=== PATIENT | female | born 1985 | race Caucasian/White ===

== ENCOUNTER → 2023-08-23 | Emergency (ER) | payer OTHER ==
[~2023-08-23] MED LIST: ALBUMIN HUMAN 25% 200 ML IV ONE; FENTANYL CITR 100 MCG/2 ML ONE; NA CHLORIDE 0.9% 1,000 ML ONE; NA CHLORIDE 0.9% 500 ML ONE; POTASSIUM 25 MEQ EFFERV TAB ONE; TRANEXAMIC ACID 1,000 MG/10 ML VIAL IV ONE
[2023-08-23 23:44] LABS: Absolute Basophils 0.1 K/uL (0-0.5); Absolute Eosinophils 0.2 K/uL (0-0.5); Absolute Lymphocytes (CBC) 2.5 K/uL (0.7-4.9); Absolute Monocytes 0.4 K/uL (0.1-1.3); Absolute Neutrophil 4.8 K/uL (1.8-8.0); Basophils % 1.1 % (0-1.3); Hematocrit 30.5 % (36.0-45.0); Hemoglobin 10.8 g/dL (12.0-15.0); Lymphocytes % 30.9 % (15.3-44.8); MCH 31.1 pg (27.0-35.0); MCHC 35.2 g/dL (32.0-36.0); MCV 88.4 fL (80-100); Monocytes % 5.4 % (3.3-12.3); Neutrophils % 60.6 % (41.7-73.7); Platelets 207 thou/uL (152-406); RBC Red Blood Cell Count 3.45 M/uL (3.86-4.86); Red Cell Distribution Width 12.7 % (12.1-15.2)
[2023-08-23 23:57] LABS: Anion Gap 10.3 mEq/L (5.0-15.0); Potassium 3.3 mEq/L (3.5-5.1)
--- NOTE | 2023-08-24 01:20 | ER ---
Nurse's Notes [facility] Name: Chapis Delgado Age: 37 yrs Sex: Female : 1985 Arrival Date: 08/23/2023 Time: 22:07 Bed 3 Private MD: Diagnosis: Incomplete spontaneous without complication;Anemia, unspecified Presentation: 08/22 22:46 Chief complaint: Patient states: vaginal bleeding since 2100 today; had a medicated km8 last week with no success, then got a second dose of the medication today at 1330; pt reports going through 6 pads in the last hour and passing grapefruit size clots. Coronavirus screen: Client denies travel out of the [place] in the last 14 days. Ebola Screen: No symptoms or risks identified at this time. Initial Sepsis Screen: Does the patient meet any 2 criteria? No. Patient's initial sepsis screen is negative. Does the patient have a suspected source of infection? No. Patient's initial sepsis screen is negative. Risk Assessment: Do you want to hurt yourself or someone else? Patient reports no desire to harm self or others. Onset of symptoms was August 23, 2023 at 21:00. 22:46 Method Of Arrival: Ambulatory km8 22:46 Acuity: ARIANNA 3 km8 Triage Assessment: 22:49 General: Appears in no apparent distress. uncomfortable, Behavior is calm, cooperative, km8 appropriate for age. Pain: Complains of pain in suprapubic area Pain radiates to low back area Pain currently is 10 out of 10 on a pain scale. EENT: No signs and/or symptoms were reported regarding the EENT system. Neuro: Level of Consciousness is awake, alert, obeys commands, Oriented to person, place, time, situation, Reports dizziness. Cardiovascular: Denies chest pain, shortness of breath, Patient's skin is warm and dry. Respiratory: Airway is patent Respiratory effort is even, unlabored, Respiratory pattern is regular, symmetrical. GI: No signs and/or symptoms were reported involving the gastrointestinal system. : Reports vaginal bleeding that is with clots, heavy flow since 2099. Derm: No signs and/or symptoms reported regarding the dermatologic system. Skin is intact, is healthy with good turgor, Skin is dry, Skin is pink, warm \T\ dry. normal, Skin temperature is warm. Musculoskeletal: No signs and/or symptoms reported regarding the musculoskeletal system. Range of motion: intact in all extremities. 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 Flu vaccine is not up to date. - Social history:: Smoking status: Patient denies any tobacco usage or history of. Patient/guardian denies using alcohol, street drugs. Screenin:49 [facility] ED Fall Risk Assessment (Adult) History of falling in the last 3 months, me1 including since admission No falls in past 3 months (0 pts) Confusion or Disorientation No (0 pts) Intoxicated or Sedated No (0 pts) Impaired Gait No (0 pts) Mobility Assist Device Used No (0 pt) Altered Elimination No (0 pt) Score/Fall Risk Level 0 - 2 = Low Risk Maintained a safe environment, Provided non-skid footwear, Hourly rounding (assess needs \T\ fall precautionary measures) done. Abuse screen: Denies threats or abuse. Nutritional screening: No deficits noted. Tuberculosis screening: No symptoms or risk factors identified. Assessment: 23:49 General: Appears uncomfortable, well groomed, well developed, well nourished, Behavior me1 is calm, cooperative, appropriate for age, Reports vaginal bleeding since 2100 today; had a medicated last week with no success, then got a second dose of the medication today at 1330; pt reports going through 6 pads in the last hour and passing grapefruit size clots. Pain: Complains of pain in abdomen and suprapubic area Pain radiates to back and low back area Pain currently is 9 out of 10 on a pain scale. Quality of pain is described as crampy, Pain began 4 hours ago. Is continuous. Neuro: Level of Consciousness is awake, alert, obeys commands, Oriented to person, place, time, situation, Appropriate for age. Cardiovascular: Capillary refill < 3 seconds Patient's skin is warm and dry. Respiratory: Airway is patent Trachea midline Respiratory effort is even, unlabored, Respiratory pattern is regular, symmetrical. : Reports vaginal bleeding that is with clots, heavy flow since 9pm. Derm: Skin is pink, warm \T\ dry. Musculoskeletal: 08/23 01:18 Reassessment: pt stated she feels worse; pt noted to be pale and SBP in the 80's; pt BP km8 recheck showed SBP 50's, pt placed in Trendelenburg, SUHAS De La Cruz and Dr. Espinal notified; pt moved to trauma room 3 with this nurse. General: Behavior is drowsy, Reports fatigue for. Neuro: Level of Consciousness is obeys commands, lethargic, Reports dizziness, weakness. Cardiovascular:. Cardiovascular: Patient's skin is warm and dry. Respiratory: Airway is patent Respiratory effort is even, unlabored, Respiratory pattern is regular, symmetrical. Derm: Skin is pale. 02:00 Reassessment: Emergent blood transfusion started per Dr. Espinal; pt verbally km8 consented to blood; see separate transfusion paper. 02:18 Reassessment: report called to SHELDON Prasad at [facility]. km8 02:30 Reassessment: Patient appears in no apparent distress at this time. Patient and/or km8 family updated on plan of care and expected duration. Pain level reassessed. Patient is alert, oriented x 3, equal unlabored respirations, skin warm/dry/pink. Patient states symptoms have improved. Neuro: Level of Consciousness is awake, alert, obeys commands, Oriented to person, place, time, situation. Cardiovascular: Patient's skin is warm and dry. Respiratory: Airway is patent Respiratory effort is even, unlabored, Respiratory pattern is regular, symmetrical. Derm: Skin is pink, warm \T\ dry. normal. Vital Signs: 08/22 22:46 BP 121 / 56; Pulse 63; Resp 16; Temp 98.2(O); Pulse Ox 98% on R/A; Weight 63.96 kg (R); km8 Height 5 ft. 7 in. (R); Pain 10/10; 23:45 BP 104 / 61; Pulse 76; Resp 16; Pulse Ox 100% on R/A; me1 08/23 00:00 BP 95 / 45; Pulse 65; Resp 16; Pulse Ox 99% on R/A; km8 00:07 BP 100 / 54; Pulse 65; Resp 16; Pulse Ox 97% on R/A; km8 00:15 BP 86 / 45; Pulse 62; Resp 16; Pulse Ox 99% on R/A; km8 00:30 BP 91 / 46; Pulse 59; Resp 16; Pulse Ox 100% on R/A; km8 :36 BP 108 / 52; Pulse 71; Resp 16; Pulse Ox 100% on R/A; km8 00:45 BP 96 / 54; Pulse 64; Resp 16; Pulse Ox 100% on R/A; km8 01:16 BP 87 / 51; Pulse 80; Resp 16; Pulse Ox 100% on R/A; km8 :26 BP 56 / 28; Pulse 58; Resp 16; Pulse Ox 100% ; vc1 01:28 BP 66 / 53; Pulse 35; Resp 16; Pulse Ox 100% ; vc1 01:30 BP 73 / 42; Pulse 40; Resp 15; Pulse Ox 100% ; vc1 01:45 BP 94 / 66; Pulse 69; Resp 16; Pulse Ox 100% on R/A; km8 :56 BP 80 / 58; Pulse 84; Resp 16; Pulse Ox 100% on R/A; km8 :00 BP 95 / 64; Pulse 68; Resp 16; Pulse Ox 100% on R/A; km8 :05 BP 93 / 53; Pulse 57; Resp 16; Pulse Ox 100% on R/A; 8 :08 BP 96 / 52; Pulse 61; Resp 16; Pulse Ox 100% on R/A; km8 :10 BP 96 / 41; Pulse 64; Resp 16; Pulse Ox 100% on R/A; km8 :15 BP 89 / 75; Pulse 69; Resp 16; Pulse Ox 100% on R/A; km8 :20 BP 93 / 49; Pulse 61; Resp 16; Pulse Ox 100% ; km8 :25 BP 92 / 46; Pulse 60; Resp 16; Pulse Ox 100% on R/A; km8 :30 BP 93 / 49; Pulse 62; Resp 16; Pulse Ox 100% on R/A; km8 :35 BP 96 / 57; Pulse 69; Resp 16; Pulse Ox 100% on R/A; km8 08/22 22:46 Body Mass Index 22.08 (63.96 kg, 170.18 cm) km8 08/22 22:46 Pain Scale: Adult 8 ED Course: 08/22 22:10 Patient arrived in ED. mr 22:29 Boni Damon PA is PHCP. cp 22:29 Ministerio Espinal MD is Attending Physician. cp 22:49 Triage completed. km8 22:49 Arm band placed on right wrist. km8 23:21 Belia Bueno, RN is Primary Nurse. me1 23:35 Initial lab(s) drawn, by ok, sent to lab. Inserted saline lock: 22 gauge in right me1 antecubital area, using aseptic technique. 23:36 Type And Screen Sent. me1 23:36 Basic Metabolic Panel Sent. me1 23:36 CBC with Diff Sent. me1 23:49 Patient has correct armband on for positive identification. Bed in low position. Call ok1 light in reach. Side rails up X 1. Provided Education on: POC. Verbalized understanding. . 23:58 US OB Limited In Process Unspecified. EDIA 08/23 01:00 Assist provider with pelvic exam: Set up pelvic tray. Performed by Boni DAI POC km8 sent to pathology, Patient tolerated well. 01:20 One-on-one care X 15 minutes. km8 01:20 Inserted saline lock: 18 gauge in left antecubital area, using aseptic technique. km8 01:35 One-on-one care X 15 minutes. km8 01:35 Assist provider with pelvic exam: Performed by Ministerio Espinal MD Vaginal packing km8 inserted. Patient tolerated well. 01:50 One-on-one care X 15 minutes. km8 02:00 Provided Education on: Blood Transfusion. km8 02:00 Consent for blood and/or blood product transfusion explained by staff. km8 02:05 One-on-one care X 15 minutes. km8 02:20 One-on-one care X 15 minutes. km8 02:35 One-on-one care X 15 minutes. km8 02:48 Patient transferred, IV remains in place. km8 02:50 Primary Nurse role handed off by Belia Bueno, RN km8 02:50 Soo Tyler, SHELDON is Primary Nurse. km8 Administered Medications: 08/22 23:48 Drug: fentaNYL (PF) IVP 25 mcg IVP once Route: IVP; Site: right antecubital; ok1 08/23 00:59 Follow up: Response: No adverse reaction; Pain is decreased [facility] 08/22 23:53 Drug: NS 0.9% IV 1000 ml IV at 1 bolus Per protocol; 1000 mL bolus Route: IV; Rate: 1 me1 bolus; Site: right antecubital; 08/23 01:15 Follow up: IV Status: Completed infusion; IV Intake: 1000ml [facility] 01:23 Drug: Potassium PO Effervescent Tablet 50 mEq PO once; dissolve in 4 ounces of water or km8 juice Route: PO; 02:26 Follow up: Response: No adverse reaction [facility] 01:23 Drug: NS 0.9% IV 1000 ml IV at 125 ml/hr continuous Route: IV; Rate: 125 ml/hr; Site: [facility] right antecubital; 02:44 Follow up: IV Status: Completed infusion; IV Intake: 1000ml [facility] 02:24 Drug: Albumin IVPB 25 grams 100 ml IVPB once; (Note: Albumin 25% concentration) Volume: km8 100 ml; Route: IVPB; Site: left antecubital; 02:44 Follow up: IV Status: Infusion continued upon transfer [facility] 02:24 Drug: Albumin IVPB 25 grams 100 ml IVPB once; (Note: Albumin 25% concentration) Volume: km8 100 ml; Route: IVPB; Site: left antecubital; 02:44 Follow up: IV Status: Infusion continued upon transfer [facility] 02:30 Drug: tranexamic acid 1000 mg IV at bolus once; administer at a rate not to exceed 100 lg3 mg per min Route: IV; Rate: bolus; Site: right antecubital; 02:43 Follow up: IV Status: Completed infusion [facility] Medication: 08/22 23:49 VIS not applicable for this client. me1 Intake: 08/23 01:15 IV: 1000ml; Total: 1000ml. [facility] 02:44 IV: 1000ml; Total: 2000ml. [facility] Outcome: 01:19 ER care complete, transfer ordered by MD. macdonald 02:49 Transferred by ground EMS to [facility], Transfer form [facility] completed. 02:49 Condition: stable 02:49 Instructed on the need for admit, Demonstrated understanding of instructions, 02:51 Patient left the ED. km8 Signatures: Dispatcher [employer] EDKristin Abdul, Reg Reg mr Marisol, Boni, Isabel Herr cp, RN RN lg3 Vinita Preston, RN RN vc1 Belia Bueno, RN RN ok1 Soo Tyler, RN RN km8 Corrections: (The following items were deleted from the chart) 08/22 22:52 22:49 LMP 08/23/2023, unknown, current km8 km8 23:48 22:46 Chief complaint: Patient states: vaginal bleeding since 2100 today; had a me1 medicated last week with no success, then got a second dose of the medication today at 1330; pt reports going through 6 pads in the last hour and passing grapefruit size clots km8 08/23 02:51 02:00 Reassessment: Emergent blood transfusion started per Dr. Espinal; pt verbally km8 consented to blood. km8
--- NOTE | 2023-08-24 01:20 | EDPHYS ---
Physician Documentation [facility] Name: Chapis Delgado Age: 37 yrs Sex: Female : 1985 Arrival Date: 08/23/2023 Time: 22:07 Bed 3 Private MD: ED Physician Ministerio Espinal HPI: 08/22 23:00 This 37 yrs old Female presents to ER via Ambulatory with complaints of Vaginal cp Bleeding. 23:00 The patient presents with vaginal bleeding that is heavy, with clots. Onset: The cp symptoms/episode began/occurred today, at 21:00. Associated signs and symptoms: Pertinent positives: abdominal pain, Pertinent negatives: fever, vomiting. Severity of symptoms: in the emergency department the symptoms are unchanged, despite home interventions. 23:00 Patient reports she was treated for non-viable with vaginal suppository cp Misoprostol today. Reports DR Olivia placed suppository at 1345 appt today with heavy bleeding starting at 2100. 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 Flu vaccine is not up to date. - Social history:: Smoking status: Patient denies any tobacco usage or history of. Patient/guardian denies using alcohol, street drugs. ROS: 23:05 Constitutional: Negative for body aches, chills, fever, poor PO intake, cp 23:05 Respiratory: Negative for cough, shortness of breath, wheezing, cp 23:05 Abdomen/GI: Positive for abdominal pain, 23:05 : Positive for vaginal bleeding, 23:05 Neuro: Negative for altered mental status, headache, syncope, weakness, 23:05 Eyes: Negative for injury, pain, redness, and discharge, cp 23:05 ENT: Negative for drainage from ear(s), ear pain, sore throat, difficulty swallowing, difficulty handling secretions, 23:05 Cardiovascular: Negative for chest pain, edema, palpitations, 23:05 Back: Negative for pain at rest, pain with movement, 23:05 All other systems are negative, Exam: 23:10 Constitutional: The patient appears in no acute distress, alert, awake, non-toxic, well cp developed, well nourished, pale, 23:10 Head/Face: Normocephalic, atraumatic. cp 23:10 Eyes: Periorbital structures: appear normal, Conjunctiva: normal, no exudate, no injection, Sclera: no appreciated abnormality, Lids and lashes: appear normal, bilaterally, 23:10 ENT: External ear(s): are unremarkable, Nose: is normal, Mouth: Lips: moist, Oral mucosa: pink and intact, moist, Posterior pharynx: Airway: no evidence of obstruction, patent, 23:10 Chest/axilla: Inspection: normal, 23:10 Cardiovascular: Rate: normal, Rhythm: regular, 23:10 Respiratory: the patient does not display signs of respiratory distress, Respirations: normal, no use of accessory muscles, no retractions, labored breathing, is not present, Breath sounds: are clear throughout, no decreased breath sounds, no stridor, no wheezing, 23:10 Abdomen/GI: Inspection: abdomen appears normal, Bowel sounds: active, all quadrants, Palpation: soft, in all quadrants, moderate abdominal tenderness, in the right lower quadrant and left lower quadrant, 23:10 Neuro: Orientation: to person, place \T\ time. Mentation: is normal, Motor: moves all fours, strength is normal, Sensation: is normal, 08/23 02:05 : Pelvic Exam: External exam: is normal, Speculum exam: severe bleeding, blood clots cp in vaginal vault, os that is open, tissue in cervix is seen, tissue in vagina is seen, the nurse was present for the exam, Vital Signs: 08/22 22:46 BP 121 / 56; Pulse 63; Resp 16; Temp 98.2(O); Pulse Ox 98% on R/A; Weight 63.96 kg (R); km8 Height 5 ft. 7 in. (R); Pain 10/10; 23:45 BP 104 / 61; Pulse 76; Resp 16; Pulse Ox 100% on R/A; me1 08/23 00:00 BP 95 / 45; Pulse 65; Resp 16; Pulse Ox 99% on R/A; km8 00:07 BP 100 / 54; Pulse 65; Resp 16; Pulse Ox 97% on R/A; km8 00:15 BP 86 / 45; Pulse 62; Resp 16; Pulse Ox 99% on R/A; km8 00:30 BP 91 / 46; Pulse 59; Resp 16; Pulse Ox 100% on R/A; km8 00:36 BP 108 / 52; Pulse 71; Resp 16; Pulse Ox 100% on R/A; km8 00:45 BP 96 / 54; Pulse 64; Resp 16; Pulse Ox 100% on R/A; km8 01:16 BP 87 / 51; Pulse 80; Resp 16; Pulse Ox 100% on R/A; km8 :26 BP 56 / 28; Pulse 58; Resp 16; Pulse Ox 100% ; vc1 01:28 BP 66 / 53; Pulse 35; Resp 16; Pulse Ox 100% ; vc1 01:30 BP 73 / 42; Pulse 40; Resp 15; Pulse Ox 100% ; vc1 01:45 BP 94 / 66; Pulse 69; Resp 16; Pulse Ox 100% on R/A; km8 :56 BP 80 / 58; Pulse 84; Resp 16; Pulse Ox 100% on R/A; km8 02:00 BP 95 / 64; Pulse 68; Resp 16; Pulse Ox 100% on R/A; 8 :05 BP 93 / 53; Pulse 57; Resp 16; Pulse Ox 100% on R/A; 8 :08 BP 96 / 52; Pulse 61; Resp 16; Pulse Ox 100% on R/A; 8 :10 BP 96 / 41; Pulse 64; Resp 16; Pulse Ox 100% on R/A; 8 02:15 BP 89 / 75; Pulse 69; Resp 16; Pulse Ox 100% on R/A; km8 :20 BP 93 / 49; Pulse 61; Resp 16; Pulse Ox 100% ; km8 :25 BP 92 / 46; Pulse 60; Resp 16; Pulse Ox 100% on R/A; km8 02:30 BP 93 / 49; Pulse 62; Resp 16; Pulse Ox 100% on R/A; km8 :35 BP 96 / 57; Pulse 69; Resp 16; Pulse Ox 100% on R/A; km8 08/22 22:46 Body Mass Index 22.08 (63.96 kg, 170.18 cm) [facility] 08/22 22:46 Pain Scale: Adult 8 MDM: 08/22 23:07 Patient medically screened. 08/23 01:15 Data reviewed: vital signs, nurses notes, lab test result(s), radiologic studies, cp ultrasound. Management of patient was discussed with the following: Poultry Inseminator: DR Cheng, SAW CLEANER \T\[facility], will accept patient as transfer after discussion. I considered the following discharge prescriptions or medication management in the emergency department Medications were administered in the Emergency Department. See AUG. 08/22 22:56 Order name: Type And Screen 08/22 22:47 Order name: Urinalysis W/Microscopic; Complete Time: 01:39 08/22 22:47 Order name: Test, Urine 08/22 22:56 Order name: Basic Metabolic Panel; Complete Time: 23:58 08/22 23:58 Interpretation: Normal except: K 3.3; GLUC 127. 08/22 22:56 Order name: CBC with Diff; Complete Time: 00:02 08/23 00:02 Interpretation: Normal except: RBC 3.45; HGB 10.8; HCT 30.5. 08/23 01:45 Order name: ABO/RH no charge [facility] 08/23 01:48 Order name: Packed RBC Leukored [facility] 08/22 23:13 Order name: US OB Limited 08/22 22:56 Order name: IV Saline Lock; Complete Time: 23:36 08/22 22:56 Order name: Labs collected and sent; Complete Time: 23:36 08/22 22:56 Order name: NPO; Complete Time: 23:36 08/22 23:13 Order name: IV; Complete Time: 23:36 cp 08/22 23:14 Order name: Pelvic Exam Setup; Complete Time: 23:54 08/23 01:58 Order name: Transfuse; Complete Time: 02:30 cp Administered Medications: 08/22 23:48 Drug: fentaNYL (PF) IVP 25 mcg IVP once Route: IVP; Site: right antecubital; [facility] 08/23 00:59 Follow up: Response: No adverse reaction; Pain is decreased [facility] 08/22 23:53 Drug: NS 0.9% IV 1000 ml IV at 1 bolus Per protocol; 1000 mL bolus Route: IV; Rate: 1 me1 bolus; Site: right antecubital; 08/23 01:15 Follow up: IV Status: Completed infusion; IV Intake: 1000ml [facility] 01:23 Drug: Potassium PO Effervescent Tablet 50 mEq PO once; dissolve in 4 ounces of water or km8 juice Route: PO; 02:26 Follow up: Response: No adverse reaction [facility] 01:23 Drug: NS 0.9% IV 1000 ml IV at 125 ml/hr continuous Route: IV; Rate: 125 ml/hr; Site: 8 right antecubital; 02:44 Follow up: IV Status: Completed infusion; IV Intake: 1000ml [facility] 02:24 Drug: Albumin IVPB 25 grams 100 ml IVPB once; (Note: Albumin 25% concentration) Volume: km8 100 ml; Route: IVPB; Site: left antecubital; 02:44 Follow up: IV Status: Infusion continued upon transfer [facility] 02:24 Drug: Albumin IVPB 25 grams 100 ml IVPB once; (Note: Albumin 25% concentration) Volume: km8 100 ml; Route: IVPB; Site: left antecubital; 02:44 Follow up: IV Status: Infusion continued upon transfer [facility] 02:30 Drug: tranexamic acid 1000 mg IV at bolus once; administer at a rate not to exceed 100 lg3 mg per min Route: IV; Rate: bolus; Site: right antecubital; 02:43 Follow up: IV Status: Completed infusion [facility] Disposition: 06:59 Co-signature as Attending Physician, Ministerio Espinal MD I agree with the assessment sp4 and plan of care. I reviewed the patient's care provided by Advanced Practice Provider \T\ agree w/ the diagnosis \T\ care plan. I personally saw the pt \T\ performed a substantive portion of the visit, incldng all aspects of the (History/Exam/Medical Decision Making). Disposition Summary: 08/24/23 01:19 Transfer Ordered Notes: Transfer Location: [facility] cp Reason: Higher level of care cp Condition: Stable cp Problem: new cp Symptoms: have improved cp Accepting Physician: DR Cheng(08/24/23 02:51) 8 Diagnosis - Incomplete spontaneous without complication cp - Anemia, unspecified cp Forms: - Medication Reconciliation Form cp - SBAR form cp Signatures: Dispatcher [employer] Boni Osuna PA PA cp Able, Lacie RN RN lg3 Ministerio Espinal MD MD sp4 Belia Bueno RN RN me1 Soo Tyler RN RN km8 Corrections: (The following items were deleted from the chart) 02:51 01:19 DR Prosper macdonald km8
[2023-08-24 01:38] LABS: Specific Gravity > 1.030 (1.005-1.030); Sqamous Epithelial <5 /HPF (None Seen); Urine Bacteria None Seen /HPF (<20); Urine Bilirubin NEGATIVE (Negative); Urine Blood 1+ (Negative); Urine Clarity Clear (Clear); Urine Color Yellow (Yellow); Urine Crystals Unidentified Few /HPF (None Seen); Urine Culture Reflex Order NOT NEEDED; Urine Glucose NEGATIVE (Negative); Urine Ketones TRACE (Negative); Urine Micro Reflex YN NO BILL MICROSCOPIC; Urine Mucus 4+ /HPF (None Seen); Urine Nitrite NEGATIVE (Negative); Urine Protein 1+ (Negative); Urine Urobilinogen Normal (Normal); Urine WBC <5 /HPF (<5); Urine Yeast (Budding) Trace /HPF (None Seen)
[2023-08-24 02:57] VITALS: TEMP 98.2
[2023-08-24 03:29] VITALS: O2SAT 100
[2023-08-24 03:56] VITALS: BP 96/57
--- NOTE | 2023-08-24 11:31 | RAD REPORT ---
EXAM DESCRIPTION: US - OB Limited - 08/23/2023 11:56 pm CLINICAL HISTORY: The patient is 37 years old and is Female; VAGINAL BLEEDING , recent miscarriage i nduction,Bed Name: 13 TECHNIQUE: Real-time limited ultrasound of the maternal uterus with image documentation. COMPARISON: No relevant prior studies available. FINDINGS: FETUS: No identifiable gestational sac. No pole or heart tones identified. UTERUS: Thickened, heterogenous appearance of the endometrium, measuring up to 2.4 cm, with interna l vascularity and trace associated endometrial fluid.. This heterogenous signal continues into the ce rvical canal. The uterus measures 9.5 x 5.2 x 7 cm. ADNEXA: Neither the left nor the right ovary is identified on transabdominal imaging. No abnormal adnexal mass or fluid collection is appreciated. OTHER FINDINGS: No appreciable endometrial gas is identified by ultrasound. IMPRESSION: Thickened heterogenous appearance of the endometrium and cervical canal with internal va scularity, favoring retained products of conception given history. No viable IUP identified. No appre ciable gas to suggest endometritis. Electronically signed by: Nils Kinney MD 08/24/2023 12:32 AM CDT Due to temporary technical issues with the PACS/Fluency reporting system, reports are being signed by the in house radiologist without review as a courtesy to ensure prompt reporting. The interpreting r adiologist is fully responsible for the content of the report.
== END ==
LOC: ER 22:07
PROC: 30233N1 Transfusion of Nonautologous Red Blood Cells into Peripheral Vein, Percutaneous Approach (ICD-10-PCS; principal; 2023-08-23)
DX: O03.4 Incomplete spontaneous abortion without complication (principal); D64.9 Anemia, unspecified; Z28.310 Unvaccinated for COVID-19
CPT/HCPCS: 96365; 96361; 85025; 80048; 36415; 86900; 86850; 86901; 86920 ×2; 76815; 96375; 99285; 36430; J3010; J7030

== ENCOUNTER 2024-03-23 18:41 | Emergency (ER) | payer OTHER ==
--- OUTSIDE RECORDS SUMMARY | 2024-03-23 18:44 | XMS REPORT | Continuity of Care Document ---
Author Name Unknown Address [address] [facility] [place]. [address] [place] [address] [facility] heal[facility] Address [address] [facility]. [address] [place] [address] Care Team Providers Care Procurement Assistant Name Role Phone PCP, PATIENT DOES NOT HAVE A Primary Care Physic mikey Unavailable NITZA BYRNES Attending Clinician Unavailable NITZA BYRNES Attending Clinician Unavailable NAT MAYER Attending Clinician Unavailable Nitza Byrnes MD Attending Clinician [phone] Doctor Unassigned, [place] Attending Clinician U navailable 2, [facility] Attending Clinician Unavailable BLANCHE CHENG Attending Clinician Unavailable Blanche Cheng MD Attending Clinician [phone] RLYEE HAY Attending Clinician RYLEE Kincaid Attending Clinician BLANCHE Casarez Admitting Clinician Unavailable Blanche Cheng MD Admitting Clinician [phone] Payers Payer Name Policy Type Policy Number Effective Date Expirati on Date Source [facility] [id number] 2024 00:00:00 Problems Condition Name Condition Details Condition Category Status Onset Date Resolution Date Last Treatment Date Treating Clinician Comments Source Previous section Previous section Disease Active 2023-06 00:00: 00 [facility] High-risk in first trimester High-risk in first trimester Disease Active 2023-06 00:00: 00 [facility] Nausea and vomiting during prior to 22 weeks gestation Nausea and vomiting during prior to 22 weeks gestation Disease Active 2023-06 00:00: 00 [facility] History of anxiety History of anxiety Disease Active 2023-06 014 00:00: 00 [facility] AMA (advanced maternal age) multigravi da 35+, first trimester AMA (advanced maternal age) multigravi da 35+, first trimester Disease Active 3 00:00: 00 [facility] Anemia due to acute blood loss Anemia due to acute blood loss Disease Resolve d 08-23 00:00: 00 2024-03-10 00:00:00 2024-03-10 15:43:25 [facility] Incomplete miscarriag e Incomplete miscarriag e Disease Resolve d 08-23 00:00: 00 2023-09-06 00:00:00 2023-09-06 09:29:54 [facility] Missed Missed Disease Resolve d 08-13 00:00: 00 2023-09-06 00:00:00 2023-09-06 09:29:53 [facility] Allergies, Adverse Reactions, Alerts Allergy Name Allergy Type Status Severity Reaction(s) Onset Date Inactive Date Treating Clinician Comments Source NO KNOWN ALLERGIE S Drug Class Active [facility] Social History Social Habit Start Date Stop Date Quantity Comments Source ASSERTION 2024-01-24 00:00:00 [facility] Alcoholic beverage intake 2024-03-17 00:00:00 2024-03-17 00:00:00 Lifetime non-drinker (finding) [facility] Tobacco use and exposure 2024-03-10 00:00:00 2024-03-10 00:00:00 Smokeless tobacco non-user [facility] Alcohol intake 2023-09-06 00:00:00 2023-09-06 00:00:00 Lifetime non-drinker (finding) [facility] History of Social function 2023-08-15 00:00:00 2023-08-15 00:00:00 [facility] Sex assigned at 1985 00:00:00 1985 00:00:00 [facility] Smoking Status Start Date Stop Date Source Never smoked tobacco [facility] Medications Ordered Medication Name Filled Medication Name Start Date Stop Date Current Medication? Ordering Clinician Indication Dosage Frequency Signature (SIG) Comments Components Source vit no.124/iron /folic ( VITAMIN ORAL) 2023-06 15:42: 58 03-10 00:00 :00 No Take by mouth. [facility] pyridoxine, VITAMIN B-6, (VITAMIN B-6) 25 mg tablet 2023-06 00:00: 00 Yes [id number] 25mg Take 1 tablet by mouth every 6 (six) hours as needed for Nausea and Vomiting (N/V). [facility] doxylamine (UNISOM, DOXYLAMINE, ) 25 mg tablet 2023-06 00:00: 00 Yes [id number] 25mg Take 1 tablet by mouth at bedtime as needed for Nausea and Vomiting (N/V). [facility] proMETHazin e 25 mg tablet 2023-06 00:00: 00 Yes [id number] 25mg Take 1 tablet by mouth every 4 (four) hours as needed for Nausea and Vomiting (N/V). [facility] rizatriptan 10 mg tablet 09-05 08:43: 24 Yes TAKE 1 TABLET BY ORAL ROUTE NEEDED, FOR ABORTIVE MIGRAINE. [facility] clonazePAM 0.5 mg tablet 09-05 08:43: 13 Yes .5mg Take 1 tablet by mouth in the morning and 1 tablet in the evening. [facility] vit no.124/iron /folic ( VITAMIN ORAL) 09-05 08:42: 45 Yes Take by mouth. [facility] ferrous sulfate (IRON, FERROUS SULFATE,) 325 mg (65 mg iron) tablet 09-05 00:00: 00 03-10 00:00 :00 No [id number] 325mg Take 1 tablet by mouth in the morning and 1 tablet in the evening. [facility] bisacodyL (DULCOLAX, BISACODYL,) 5 mg EC tablet 2024-0 4-04 00:00: 00 03-10 00:00 :00 No [id number] 5mg Take 1 tablet by mouth once daily as needed for Constipati on. [facility] escitalopra m oxalate 20 mg tablet 08-26 00:00: 00 03-17 00:00 :00 No TAKE 1 TABLET BY MOUTH EVERY DAY FOR 30 DAYS [facility] ibuprofen (IBU) tablet 800 mg 08-23 16:56: 00 08-23 16:59 :00 No 800mg 800 mg, Oral, ONCE, 1 dose, On Sun08/24/23 at 1200, Routine [facility] lactated ringers IV infusion 1,000 mL 08-23 14:15: 00 Yes 1000mL at 75 mL/hr, 1,000 mL, IV Infusion, CONTINUOUS , Starting on Sun08/24/23 at 0915, Until Discontinu ed, Routine, PACU [facility] HYDROcodone -acetaminop hen (NORCO 5) 5-325 mg tablet 1 tablet 08-23 14:15: 00 08-23 14:21 :00 No 1{tbl} 1 tablet, Oral, ONCE, 1 dose, On Sun08/24/23 at 0915, Routine, PACU [facility] vit no.124/iron /folic ( VITAMIN ORAL) 08-23 12:35: 36 Yes Take by mouth. [facility] doxycycline hyclate (Vibramycin ) capsule 100 mg 08-23 10:30: 00 08-23 10:24 :00 No 100mg 100 mg, Oral, ONCE, 1 dose, On Sun08/24/23 at 0530, MEREDITH
Re ason for Anti-Infec tive: Empiric Non-Surgic al Prophylaxi s
Durat ion of therapy: Once (ED) [facility] miSOPROStoL (CYTOTEC) tablet 800 mcg 08-23 10:15: 00 08-23 10:03 :00 No 800ug 800 mcg, Vaginal, ONCE, 1 dose, On Sun08/24/23 at 0515, Routine [facility] oxytocin (PITOCIN) 30 units in NS 500 mL IV infusion 08-23 10:00: 00 Yes 125mL/h 125 mL/hr, IV Infusion, CONTINUOUS , Starting on Sun08/24/23 at 0500 [facility] FENTanyl PF (SUBLIMAZE (PF)) injection 100 mcg 08-23 09:49: 00 08-23 09:50 :00 No 100ug 100 mcg, Slow IV Push, ONCE, 1 dose, On Sun08/24/23 at 0500, Routine [facility] D5W-LR IV infusion 1,000 mL 08-23 09:00: 00 Yes 1000mL at 125 mL/hr, IV Infusion, CONTINUOUS , Starting on Sun08/24/23 at 0400, Until Discontinu ed, Routine [facility] HYDROcodone -acetaminop hen 5-325 mg tablet 08-23 00:00: 00 03-17 00:00 :00 No [id number] 1{tbl} Take 1 tablet by mouth every 6 (six) hours as needed for Pain (scale 7-10). Indication s: acute pain [facility] ibuprofen (IBU) tablet 600 mg 08-22 20:30: 00 08-22 19:42 :00 No [id number] 600mg [facility] miSOPROStoL (CYTOTEC) tablet 800 mcg 08-22 20:15: 00 08-22 19:24 :00 No [id number] 800ug [facility] ibuprofen 600 mg tablet 08-22 00:00: 00 03-10 00:00 :00 No [id number] 600mg Take 1 tablet by mouth every 6 (six) hours as needed for Pain (scale 1-3) or Pain (scale 4-6). [facility] proMETHazin e 25 mg tablet 08-22 00:00: 00 03-10 00:00 :00 No [id number] 25mg Take 1 tablet by mouth every 4 (four) hours as needed for Nausea and Vomiting (N/V). [facility] HYDROcodone -acetaminop hen 5-325 mg tablet 08-22 00:00: 00 08-23 00:00 :00 No 4647 1{tbl} Take 1 tablet by mouth every 6 (six) hours as needed for Pain (scale 7-10). Indication s: acute pain [facility] HYDROcodone -acetaminop hen 5-325 mg tablet 08-19 00:00: 00 08-22 00:00 :00 No 4647 1{tbl} Take 1 tablet by mouth every 6 (six) hours as needed for Pain (scale 7-10) for up to 7 days. Indication s: acute pain [facility] miSOPROStoL (CYTOTEC) tablet 800 mcg 08-15 01:00: 00 08-15 00:59 :00 No [id number] 800ug [facility] ibuprofen 600 mg tablet 08-14 00:00: 00 08-22 00:00 :00 No [id number] 600mg Take 1 tablet by mouth every 6 (six) hours as needed for Pain (scale 1-3) or Pain (scale 4-6). [facility] proMETHazin e 25 mg tablet 08-14 00:00: 00 08-22 00:00 :00 No [id number] 25mg Take 1 tablet by mouth every 4 (four) hours as needed for Nausea and Vomiting (N/V). [facility] HYDROcodone -acetaminop hen 5-325 mg tablet 08-14 00:00: 00 08-22 04:59 :00 No 4647 1{tbl} Take 1 tablet by mouth every 6 (six) hours as needed for Pain (scale 7-10) for up to 7 days. Indication s: acute pain [facility] vit no.124/iron /folic ( VITAMIN ORAL) 08-13 10:01: 18 Yes Take by mouth. [facility] Vital Signs Vital Name Observation Time Observation Value Comments S rohith Systolic blood pressure 2024-03-17 19:33:00 106 mm[Hg] [facility] Diastolic blood pressure 2024-03-17 19:33:00 67 mm[Hg] [facility] Heart rate 2024-03-17 19:33:00 67 /min [facility] temperature 2024-03-17 19:33:00 36.61 Anastasia [facility] Body height 2024-03-17 19:33:00 167.6 cm [facility] Body weight 2024-03-17 19:33:00 60.419 kg [facility] BMI 2024-03-17 19:33:00 21.50 kg/m2 [facility] Systolic blood pressure 2024-03-10 20:05:00 111 mm[Hg] [facility] Diastolic blood pressure 2024-03-10 20:05:00 75 mm[Hg] [facility] Heart rate 2024-03-10 20:05:00 68 /min [facility] temperature 2024-03-10 20:05:00 36.33 Anastasia [facility] Body height 2024-03-10 20:05:00 167.6 cm [facility] weight 2024-03-10 20:05:00 60.782 kg Univ [facility] BMI 2024-03-10 20:05:00 21.63 kg/m2 [facility] Systolic blood pressure 2023-09-06 13:42:00 120 mm[Hg] [facility] Diastolic blood pressure 2023-09-06 13:42:00 67 mm[Hg] [facility] Heart rate 2023-09-06 13:42:00 75 /min [facility] Body temperature 2023-09-06 13:42:00 36.5 Anastasia [facility] Body height 2023-09-06 13:42:00 167.6 cm [facility] Body weight 2023-09-06 13:42:00 64.683 kg [facility] BMI 2023-09-06 13:42:00 23.02 kg/m2 [facility] Systolic blood pressure 2023-08-24 15:10:00 115 mm[Hg] [facility] Diastolic blood pressure 2023-08-24 15:10:00 53 mm[Hg] [facility] Heart rate 2023-08-24 15:10:00 86 /min Unive [facility] Oxygen saturation in Arterial blood by Pulse oximetry 2023-08-24 15:10:00 100 /min [facility] Respiratory rate 2023-08-24 14:29:00 18 /min [facility] Body temperature 2023-08-24 13:47:00 36.44 Anastasia [facility] Body height 2023-08-24 08:34:00 167.6 cm Univ [facility] Body weight 2023-08-24 08:34:00 63.957 kg Univ [facility] BMI 2023-08-24 08:34:00 22.76 kg/m2 Univ [facility] Body height 2023-08-23 18:49:00 167.6 cm Univ [facility] Body weight 2023-08-23 18:49:00 63.957 kg Univ [facility] BMI 2023-08-23 18:49:00 22.76 kg/m2 Univ [facility] Systolic blood pressure 2023-08-23 18:49:00 92 mm[Hg] [facility] Diastolic blood pressure 2023-08-23 18:49:00 58 mm[Hg] [facility] Heart rate 2023-08-23 18:49:00 71 /min Unive [facility] Respiratory rate 2023-08-23 18:49:00 18 /min [facility] Systolic blood pressure 2023-08-15 20:43:00 105 mm[Hg] [facility] Diastolic blood pressure 2023-08-15 20:43:00 59 mm[Hg] [facility] Heart rate 2023-08-15 20:42:00 63 /min Unive [facility] Body temperature 2023-08-15 20:42:00 36.5 Anastasia [facility] Respiratory rate 2023-08-15 20:42:00 18 /min [facility] Body height 2023-08-15 20:42:00 167.6 cm [facility] Body weight 2023-08-15 20:42:00 64.139 kg [facility] BMI 2023-08-15 20:42:00 22.82 kg/m2 [facility] Systolic blood pressure 2023-08-14 14:59:00 98 mm[Hg] [facility] Diastolic blood pressure 2023-08-14 14:59:00 63 mm[Hg] [facility] Heart rate 2023-08-14 14:59:00 118 /min [facility] Respiratory rate 2023-08-14 14:59:00 18 /min [facility] Body height 2023-08-14 14:59:00 167.6 cm [facility] Body weight 2023-08-14 14:59:00 64.864 kg [facility] BMI 2023-08-14 14:59:00 23.08 kg/m2 [facility] Procedures Procedure Date / Time Performed Performing Clinician Source OB TRANSVAGINAL 2024-03-10 21:57:55 Nitza Byrnes [facility] POCT TEST 2024-03-10 00:00:00 Nitza Byrnes [facility] POCT TEST 2023-09-06 00:00:00 Nitza Byrnes [facility] FIRST TRIMESTER LESS THAN 14 WEEKS WITH TRANSVAGINAL 2023-08-24 11:39:00 Adum, Blanche Chiang [facility] CBC WITH DIFF 2023-08-24 10:30:00 Adum, Blanche Zelaya [facility] OB TRANSVAGINAL 2023-08-23 19:24:35 Nitza Byrnes [facility] PELVIS COMPLETE WITH TRANSVAGINAL 2023-08-15 16:15:14 Rylee Hay [facility] US OB TRANSVAGINAL 2023-08-14 15:30:01 Jaci Hayjessica [facility] Encounters Start Date/Time End Date/Time Encounter Type Admission Type Attending Clinicians Care Facility Care Department Encounter ID Source 2024-05-12 09:45:00 2024-05-12 09:45:00 Outpatient R NITZA BYRNES VIEN [facility] [id number] [facility] 2024-04-15 09:30:00 2024-04-15 09:30:00 Outpatient R NAT MAYER [facility] [id number] [facility] 2024-03-24 09:30:00 2024-03-24 09:30:00 Outpatient R [facility] [id number] [facility] 2024-03-17 14:15:00 2024-03-17 14:55:18 Outpatient R NITZA BYRNES VIEN [facility] [id number] [facility] 2024-03-17 14:15:00 2024-03-17 14:55:18 Initial Visit Nitza Byrnes [facility] 1.2.840.114 350.1.13.10 4.2.7.2.686 [id number] [facility] 2024-03-10 15:00:00 2024-03-10 15:42:59 Outpatient R NITZA BYRNES VI[facility] [id number] [facility] 2024-03-10 15:00:00 2024-03-10 15:42:59 Office Visit Nitza Byrnes [facility] 1.2.840.114 350.1.13.10 4.2.7.2.686 [id number] 134 [id number] [facility] 2023-09-07 00:00:00 2023-10-13 18:13:43 Patient Secure Msg Doctor Unassigned, [place] [facility] 1.2.840.114 350.1.13.10 4.2.7.2.686 [id number] [facility] 2023-09-06 10:30:00 2023-09-06 10:45:00 Hotel Clerk Visit 2, [facility] 1.2840.114 350.1.13.10 4.2.7.2.686 [id number] [facility] 2023-09-06 09:00:00 2023-09-06 09:05:55 Outpatient R NITZA BYRNES [facility] [id number] [facility] 2023-09-06 09:00:00 2023-09-06 09:05:55 [facility] 1.2840.114 350.1.13.10 4.2.7.2.686 [id number] [facility] 2023-08-30 13:45:00 2023-08-30 13:45:00 Outpatient R NITZA BYRNES [facility] [id number] [facility] 2023-08-24 02:18:00 2023-08-24 12:30:00 Outpatient P ADBLANCHE MCCARTNEY [facility] [id number] [facility] 2023-08-24 02:18:00 2023-08-24 12:30:00 Hospital Encounter Blanche Cheng [facility] 1.20.114 350.1.13.10 4.2.7.2.686 [id number] [facility] 2023-08-24 00:00:00 2023-08-24 00:00:00 Telephone Nitza Byrnes [facility] 1.2840.114 350.1.13.10 4.2.7.2.686 [id number] [facility] 2023-08-23 15:30:00 2023-08-23 15:45:00 Hotel Clerk Visit 2, [facility] 1.2840.114 350.1.13.10 4.2.7.2.686 [id number] [facility] 2023-08-23 13:45:00 2023-08-23 14:41:08 Outpatient R NITZA BYRNES [facility] [id number] [facility] 2023-08-23 13:45:00 2023-08-23 14:41:08 Office Visit [facility] Byr[facility] 1.2.840.114 350.1.13.10 4.2.7.2.686 [id number] [facility] 2023-08-23 00:00:00 2023-08-23 00:00:00 Prep For Surgery Nitza Byrnes [facility] 1.2.840.114 350.1.13.10 4.2.7.2.686 [id number] [facility] 2023-08-20 00:00:00 2023-08-20 00:00:00 Case Management Nitza Byrnes [facility] 1.2.840.114 350.1.13.10 4.2.7.2.686 [id number] [facility] 2023-08-18 00:00:00 2023-08-18 00:00:00 Refill Nitza Byrnes [facility] BUILDING 1.2.840.114 350.1.13.10 4.2.7.2.686 [id number] 134 [id number] [facility] 2023-08-17 00:00:00 2023-08-17 00:00:00 Outpatient R RYLEE NOVAK MARISOL [facility] [id number] [facility] 2023-08-15 10:10:52 2023-08-15 23:59:00 Outpatient R RYLEE NOVAK S, RYLEE [facility] [id number] [facility] 2023-08-15 10:10:52 2023-08-15 23:59:00 Hospital Encounter Rylee Novak [facility] 1.2.840.114 350.1.13.10 4.2.7.2.686 [id number] [facility] 2023-08-15 15:30:00 2023-08-15 16:45:43 Routine Visit Nitza Byrnes [facility] 1.2.840.114 350.1.13.10 4.2.7.2.686 [id number] 134 [id number] [facility] 2023-08-15 00:00:00 2023-08-15 00:00:00 [facility] 1.2.840.114 350.1.13.10 4.2.7.2.686 [id number] [facility] 2023-08-14 10:00:00 2023-08-14 10:32:54 [facility] [id number] [facility] 2023-08-14 10:00:00 2023-08-14 10:32:54 Initial Visit Rylee Novak [facility] 1.2.840.114 350.1.13.10 4.2.7.2.686 [id number] 134 [id number] [facility] Results Test Description Test Time Test Comments Results Result Co mments Source [id number] 13:44:00* Test Item Value Reference Range Interpretation Comme nts POCT PREG (test code = 1605) Positive On board controls acceptable with C Line (test code = 3574) Yes POCT PREG LOT # (test code = 3575) POCT PREG TEST DATE ( test code = 3576) [facility] [id number] 13:44:00* Test Item Value Reference Range Interpretation Comme nts POCT PREG (test code = 1605) Positive On board controls acceptable with C Line (test code = 3574) Yes POCT PREG LOT # (test code = 3575) POCT PREG TEST DATE ( test code = 3576) [facility] with [id number] 13:30:51* Test Item Value Reference Range Interpretation Comme nts WBC (test code = 6690-2) 7.60 4.30-11.10 RBC (test code = 789-8) 3.00 3.93-5.25 L HGB (test code = 718-7) 9.3 g/dL 11.6-15.0 L HCT (test code = 4544-3) 27.3 % 35.7-45.2 L MCV (test code = 787-2) 91.0 fL 80.6-95.5 MCH (test code = 785-6) 31.0 pg 25.9-32.8 MCHC (test code = 786-4) 34.1 g/dL 31.6-35.1 RDW-SD (test code = 74097-3) 42.6 fL 39.0-49.9 RDW-CV (test code = 788-0) 12.8 % 12.0-15.5 PLT (test code = 777-3) 142 166-358 L MPV (test code = 81595-9) 10.3 fL 9.5-12.9 NRBC/100 WBC (test code = 7259110590) 0.0 0.0-10.0 NRBC x10^3 (test code = 6691064576) See_Comment [Automated messa ge] The system which generated this result transmitted reference range: 10*3/?L. The reference range was not used to interpret this result as normal/abnormal. GRAN MAT (NEUT) % (test code = 770-8) 72.0 % IMM GRAN % (test code = 6207622698) 0.40 % LYMPH % (test code = 736-9) 21.2 % MONO % (test code = 5905-5) 5.0 % EOS % (test code = 713-8) 0.9 % BASO % (test code = 706-2) 0.5 % GRAN MAT x10^3(ANC) (test code = 4313099859) 5.47 10*3/uL 1.88-7.09 IMM GRAN x10^3 (test code = 9147867148) 0.03 10*3/uL 0.00-0.06 LYMPH x10^3 (test code = 731-0) 1.61 10*3/uL 1.32-3.29 MONO x10^3 (test code = 742-7) 0.38 10*3/uL 0.33-0.92 EOS x10^3 (test code = 711-2) 0.07 10*3/uL 0.03-0.39 BASO x10^3 (test code = 704-7) 0.04 10*3/uL 0.01-0.07 Lab Interpretation (test code = 87110-0) Abnormal [facility] FIRST TRIMESTER LESS THAN 14 WEEKS WITH [id number] 12:34:50US FIRST TRIMESTER LESS THAN 14 WEEKS WITH TRANSVAGINAL Ordering Provider: BLANCHE Chiang ADUM HISTORY: ?check for retained products COMPARISON: Ultrasound 08/15/2023 Technical quality: adequate TECHNIQUE: Sonographic evaluation of the uterus and bilateral adnexa. Cineclips were obtained for evaluation of retained intrauterine pregnancyproducts. FINDINGS/[facility] PELVIS COMPLETE WITH TRANSVAGINAL 2023-08-15 16:25:37HISTORY: ?11 weeks with no cardiac activity. Please confirm fetaldemise. TECHNIQUE: Both transabdominal and transvaginal pelvic ultrasound studieswere completed by the technologist. FINDINGS: Uterus is enlarged, measures approximately 12.5 x 6.4 x 7.7 cm insize and contains a single intrauterine of approximately 10 weekssize by mean sac diameter of 4.34 cm and CRL measurement of 20.51 mm. Yolksac and pole visualized, however, no cardiac activity is confirmed.No free fluid in the cul-de-sac. Right ovary is 2.4 x 2.0 x 1.2 cm ( 3.10 ml) and left ovary is 3.2 x 2.7 x1.9 cm ( 8.76 ml). CONCLUSIONS: 10 week size intrauterine without cardiacactivity, confirming demise.[facility] History and Physical Notes Date/Time Note Provider Source 2023-08-24 05:14:12 Images from the original note were not included. 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 She received 2nd dose of Cytotec on 08/22 and presented to [facility] with profuse bleeding and cramps. US at [facility] showed RPOC but the provider reported that unable to visualize her cervix and initiated transfer to . She became hypotensive prior to transfuse and received 2 units of PRBCs. At this stage, they reported removing clots from the vagina and visualized POC at the cervix - but were unable to most of it. Vaginal packing was placed and she was transferred at [facility]. She was also give tranexamic acid and albumin enroute On arrival she was hemodynamically stable. Sexual History: Social History Substance and Sexual Activity Sexual Activity Yes Partners: Male control/protection: None Current Medications: Current Facility-Administered Medications Medication Dose Route Frequency Last Rate Last Admin D5W-LR IV infusion 1,000 mL 1,000 mL IV Infusion CONTINUOUS 125 mL/hr at 08/24/23 0358 1,000 mL at 08/24/23 0358 oxytocin (PITOCIN) 30 units in NS 500 mL IV infusion 125 mL/hr IV Infusion CONTINUOUS Home Medications: Medications Prior to Admission Medication Sig Dispense Refill Last Dose HYDROcodone-acetaminophen 5-325 mg tablet Take 1 tablet by mouth every 6 (six) hours as needed for Pain (scale 7-10). Indications: acute pain 8 tablet 0 ibuprofen 600 mg tablet Take 1 tablet by mouth every 6 (six) hours as needed for Pain (scale 1-3) or Pain (scale 4-6). 30 tablet 0 proMETHazine 25 mg tablet Take 1 tablet by mouth every 4 (four) hours as needed for Nausea and Vomiting (N/V). 30 tablet 0 vit no.124/iron/folic ( VITAMIN ORAL) Take by mouth. Taking Last Taken: Allergies: Patient has no known allergies. History: Past Medical History: Diagnosis Date Anxiety No family history on file. No family status information on file. Past Surgical History: Procedure Laterality Date BREAST RECONSTRUC W OTHR TECHNIQ BREAST SURGERY Implants SECTION CHOLECYSTECTOMY Social History Socioeconomic History Marital status: Tobacco Use Smoking status: Never Smokeless tobacco: Never Vaping Use Vaping Use: Never used Substance and Sexual Activity Alcohol use: Never Drug use: Never Sexual activity: Yes Partners: Male control/protection: None Surgical History: Past Surgical History: Procedure Laterality Date BREAST RECONSTRUC W OTHR TECHNIQ BREAST SURGERY Implants SECTION CHOLECYSTECTOMY OB History: OB History Para Term AB Living 5 3 2 1 2 3 SAB IAB Ectopic Multiple Live Births 2 3 # Outcome Date GA Lbr Andrew/2nd Weight Sex Delivery Anes PTL Lv 5 SAB 08/14/23 8w1d 4 Term 07/2019 4082 g F CS-Unspec [place] Comments: Didnt progress 3 Term 07/2018 2268 g M NORMAL SPONT [place] 2 02/2016 36w0d 2268 g F NORMAL SPONT [place] 1 SAB REVIEW OF SYSTEMS General: negative Constitutional: negative Eyes: negative ENT/Mouth: negative Cardiovascular: negative Respiratory: negative Gastrointestinal:negative Genitourinary: As above Musculoskeletal: negative Skin/breast: negative Neurological: negative Psychiatric: negative Endocrine: negative Hemat/Lymph: negative Allergic/Immuno:none Physical Exam: BP 97/51 (BP Location: Left arm, Patient Position: Supine) | Pulse 65 | Temp 36.9 ?C (98.4 ?F) (Oral) | Resp 16 | Ht 1.676 m (5' 6") | Wt 64 kg (141 lb) | LMP 05/29/2023 (Exact Date) | SpO2 100% | BMI 22.76 kg/m? Constitutional: alert, no apparent distress, appearing age appropriate Respiratory: good inspiratory effort to inspections Cardiovascular: regular rate and rhythm Gynecologic: Vaginal packing( 3 gauzes removed) Blood trickling from cervix. 50 mls of blood clots removed POC at the cervical os- removed completely with ring forceps Cervix 1cm dilated with minimal trickle post removal BSUS transabdominal - Thickened endometrium, heterogenous, ?RPOC visualized but images are suboptimal Labs: CBC WBC (10*3/?L) Date Value 08/23/2023 6.92 RBC (10*6/?L) Date Value 08/23/2023 4.02 PLT (10*3/?L) Date Value 08/23/2023 213 HGB (g/dL) Date Value 08/23/2023 12.5 HCT (%) Date Value 08/23/2023 36.7 Radiology from OSH Assessment/Plan: Destiny Delgado is a 37 year old female presents with incomplete miscarriage complicated by acute blood loss anemia requiring blood transfusion Incomplete miscarriage - POC removed from cervix. Bleeding and pain has slowed down drastically - Cytotec 800 mcg placed - Will get US to confirm no RPOC - Give Doxycycline 100mg x 1 Anemia - Patient is currently hemodynamically stable - Hgb at presentation at the ER was 10.8g/dl - Repeat CBC collected Disposition: Keep in house for continual observation, further management will depend on results of scan. Patient understands that we may still proceed with a D&C Blanche Cheng MD [facility] - Health Notes Date/Time Note Provider Source 2024-03-17 14:15:00 Age: [age] year old GA: 9w4d Nausea/vomiting -Resolved with vitamin B6 and Unisom CD x 1 -Desires repeat CD -Tentatively plan for 39 weeks unless clinically indicated otherwise AMA -Panorama ordered -Will discuss genetic counseling at next visit -detailed anatomy ultrasound ordered History of anxiety -Will obtain more details at next visit - Today USG: Single live IUP New OB labs today. No complaints. Discussed do's and don'ts of , safe foods, safe medications. Reviewed Zika virus precautions. I discussed the call schedule and that I might not be the physician delivering her. I discussed I deliver my patients at [facility]. Expectations for weight gain this include 25-35 pounds. Encouraged to call if have any additional questions or concerns. Discussed aneuploidy and carrier screening; patient opts for panorama and Horizon. Discussed with patient that she can have HEALTHY support with her during her delivery (which is subject to change depends on the COVID pandemic) Follow-up in 4 weeks for visit with [employer]PAIRMAN Follow-up in 8 weeks for visit with Byrnes [facility] 2023-09-06 10:30:00 Images from the original note were not included. Venipuncture collection performed by clean technique on the left anticubitus. Total of 1 attempts were made. Slight pressure and a bandage/dressing were applied to the site(s). The patient experienced no complications. The following specimens were processed according to instructions and sent to [facility] laboratories per lab order on 09/06/2023 : LT BLUE SST 1 RED LAV 2 PPT DK GREEN (LiHep) DK GREEN (SodH) BACA DK BLUE (K2) DK BLUE (S) ACD Blood Culture NIPT/NTD [facility] 2023-08-24 14:35:08 Notified patient that prescription was sent to [facility] in [place]. Mark Pierce RN 08/24/2023 2:35 PM Mark Pierce RN [facility] 2023-08-24 13:59:07 Refilled Blanche Cheng MD [facility] 2023-08-24 13:17:06 Patient calling says she was just discharged today from [facility] had a procedure done and has been in pain and will not have meds for weekend , wants a refill on HYDROcodone-acetaminophen 5-325 mg tablet has only enough for today. Roxanna Musa [facility] 2023-08-24 10:28:34 Problem: Falls, Risk of Goal: Absence of falls 08/24/2023 1028 by Gaye Chong RN Outcome: Adequate for discharge 08/24/2023 1028 by Gaye Chong RN Outcome: Progressing as expected Problem: Pain Goal: Control of pain at or below patient's documented comfort goal 08/24/2023 1028 by Gaye Chong RN Outcome: Adequate for discharge 08/24/2023 1028 by Gaye Chong RN Outcome: Progressing as expected Goal: Reduction in pain sensation 08/24/2023 1028 by Gaye Chong RN Outcome: Adequate for discharge 08/24/2023 1028 by Gaye Chong RN Outcome: Progressing as expected Problem: Infection Risk Goal: Absence of infection 08/24/2023 1028 by Gyae Chong RN Outcome: Adequate for discharge 08/24/2023 1028 by Gaye Chong RN Outcome: Progressing as expected Problem: Bleeding, Risk of Goal: Absence of impaired coagulation signs and symptoms 08/24/2023 1028 by Gaye Chong RN Outcome: Adequate for discharge 08/24/2023 1028 by Gaye Chong RN Outcome: Progressing as expected Goal: Absence of active bleeding 08/24/2023 1028 by Gaye Chong RN Outcome: Adequate for discharge 08/24/2023 1028 by Gaye Chong RN Outcome: Progressing as expected Gaye Chong RN [facility] 2023-08-24 08:10:31 Pre-operative Diagnosis: Incomplete miscarriage Post operative diagnosis: Incomplete miscarriage Procedure: Suction dilation and curettage Surgeon: Blanche Cheng MD Anesthesia: General, ET Estimated Blood Loss: 350 mls Blood Products Administered: none Specimens: RPOC Complications: None Disposition: PACU then floors Condition: Stable Indication: Destiny Delgado is a 37 year old female presents with incomplete miscarriage following medical management for missed miscarriage. POC removed at bedside but scan showed retained POC. Findings: No active bleeding on EUA. Uterus sounded to 9cm. RPOC evacuated. Procedure details: After obtaining informed consent, the patient was taken to the OR where General anesthesia was secured. She was placed on the operating table in the dorsal lithotomy position. She was prepped and draped in the usual sterile fashion. Bladder emptied. Time out held Bivalved speculum placed and anterior lip of the cervix grasped with a Allis Clamp. Uterus sounded to 9cm. A size 9 curved suction curette was advanced to the fundus with evaucation of tissue and blood. Sharp curettage was performed with intervening suction to evacuate the uterus. The above findings were noted. Brisk bleeding post procedure, controlled with bimanual and a dose of Methergine.The bleeding stopped, thereafter. Allis clamp was removed and the site were noted to be hemostatic. The speculum was removed. Sponge, lap, instruments counts were correct. The patient tolerated the procedure well and was brought to the recovery room in stable condition. Products of conception were sent to pathology. Blanche Cheng MD 08/24/2023 8:41 AM [facility] 2023-08-24 05:13:38 Summary: US COA called per provider call out US. Asked if this was something that could wait for 7am tech. Per COA immediate call out. COA aware eta is 1hr. Delfina Portillo [facility] 2023-08-23 15:30:00 Images from the original note were not included. Venipuncture collection performed by clean technique on the left anticubitus. Total of 1 attempts were made. Slight pressure and a bandage/dressing were applied to the site(s). The patient experienced no complications. The following specimens were processed according to instructions and sent to [facility] laboratories per lab order on 08/23/2023 : LT BLUE SST RED LAV 2 PPT DK GREEN (LiHep) DK GREEN (SodH) BACA DK BLUE (K2) DK BLUE (S) ACD Blood Culture NIPT/NTD Patient stated only draw the blood bank tube because Byr[facility] wanted to know her blood type. Funmilayo Escalante 08/23/2023 2:46 PM [facility] 2023-08-23 13:45:00 Addended by: MARK PIERCE on: 08/23/2023 02:43 PM Modules accepted: Orders Mark Pierce RN [facility] 2023-08-20 09:55:40 Contacted patient. She got cytotec last week. She is calling saying she is in pain. Cramping pain 01/11. Started spotting this morning. She is taking ibuprofen and took hydrocodone pills that were sent to pharmacy for severe pain. Complaining of feeling shaky, weak, vomiting. Offered appointment today. Patient unable to be seen. Dr. Byrnes notified. Dr. Byrnes orders: Motrin 600mg and tylenol 500mg q6h. Fenton sent for severe pain. Patient will need to be evaluated if condition continues. Spoke with patient. Patient advised of all orders and recommendations. Patient given strong ER precautions. Patient verbalized understanding. Mark Pierce RN 08/20/2023 9:59 AM Mark Pierce RN [facility] 2023-08-15 12:43:23 Spoke with patient, states that she was sent to get USN as she was told yesterday that there was no heartbeat. Patient had USN today confirming demise. Patient wanting plan of care. Notified aegis operations specialist provider of patients concerns. Appt scheduled to go over USN and plan of care. Margarette Yates RN 08/15/2023 12:46 PM Margarette Yates RN [facility] 2023-08-15 12:01:10 Patient is calling to go over ultrasound results and what she needs to do next. She is requesting a call back as soon as possible. Kelly Wilkinson [facility] 2023-08-14 10:00:00 Addended by: RYLEE HAY on: 08/14/2023 02:35 PM Modules accepted: Orders [facility]
[2024-03-23] MEDS ORDERED: ONDANSETRON 4 MG (ODT) TAB ONE (19:51)
[2024-03-23] MEDS ORDERED: ACETAMINOPHEN 325 MG TABLET ONE (19:51)
[2024-03-23 19:55] LABS: Specific Gravity 1.029 (1.005-1.030); Sqamous Epithelial <5 /HPF (None Seen); Urine Bacteria None Seen /HPF (<20); Urine Bilirubin NEGATIVE (Negative); Urine Blood 1+ (Negative); Urine Clarity Turbid (Clear); Urine Color Yellow (Yellow); Urine Culture Reflex Order NOT NEEDED; Urine Glucose NEGATIVE (Negative); Urine Ketones NEGATIVE (Negative); Urine Microscopic Reflex YN ORDER UMIC; Urine Mucus 4+ /HPF (None Seen); Urine Nitrite NEGATIVE (Negative); Urine Protein TRACE (Negative); Urine Urobilinogen Normal (Normal); Urine WBC <5 /HPF (<5); Urine pH 5.5 (5.0-7.0)
[2024-03-23 20:06] LABS: SARS-CoV-2 Antigen CONTROL BLUE LINE VIS/BG OK; SARS-CoV-2 Antigen Rapid Res Negative (Negative)
--- NOTE | 2024-03-23 20:38 | EDPHYS ---
Physician Documentation [facility] Name: Chapis Delgado Age: 38 yrs Sex: Female : 1985 Arrival Date: 03/23/2024 Time: 18:41 Bed 14 Private MD: ED Physician Boni Armstrong HPI: 03/23 19:15 This 38 yrs old Female presents to ER via Ambulatory with complaints of 10 weeks cp , Flu Symptoms. 19:15 The patient presents with sore throat. cp 19:15 The patient describes throat pain as constant. Onset: The symptoms/episode cp began/occurred this morning. Severity of symptoms: in the emergency department the symptoms are unchanged, despite home interventions. Associated signs and symptoms: Pertinent positives: chills, fever, flu-like symptoms, headache. Patient reports she is approximately 10 weeks . Denies any abdominal pain, denies vaginal bleeding, denies leakage of fluid. 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 - Infectious Disease History:: Denies. - Social history:: Smoking status: . ROS: 19:20 Eyes: Negative for injury, pain, redness, and discharge, cp 19:20 Constitutional: Positive for body aches, chills, Negative for fever, 19:20 ENT: Positive for sore throat, Negative for drainage from ear(s), ear pain, difficulty swallowing, difficulty handling secretions, 19:20 Cardiovascular: Negative for chest pain, 19:20 Respiratory: Negative for cough, shortness of breath, wheezing, 19:20 Abdomen/GI: Positive for nausea, vomiting, diarrhea, Negative for abdominal pain, constipation, 19:20 Back: Negative for injury or acute deformity, 19:20 : Negative for urinary symptoms, pelvic pain, vaginal bleeding, vaginal discharge, 19:20 Neuro: Positive for headache, Negative for altered mental status, weakness, 19:20 All other systems are negative, Exam: 19:25 Constitutional: The patient appears in no acute distress, alert, awake, non-toxic, well cp developed, well nourished, 19:25 Head/Face: Normocephalic, atraumatic. cp 19:25 Eyes: Periorbital structures: appear normal, Conjunctiva: normal, no exudate, no injection, Sclera: no appreciated abnormality, Lids and lashes: appear normal, bilaterally, 19:25 ENT: External ear(s): are unremarkable, Ear canal(s): are normal, clear, TM's: dullness, bilaterally, Nose: is normal, Mouth: Lips: moist, Oral mucosa: moist, Posterior pharynx: Airway: no evidence of obstruction, patent, Tonsils: no enlargement, no exudate, erythema, that is mild, exudate, is not appreciated, 19:25 Neck: ROM/movement: Meningeal signs: are not present, nuchal rigidity, is not appreciated, Lymph nodes: no appreciated lymphadenopathy, 19:25 Chest/axilla: Inspection: normal, 19:25 Cardiovascular: Rate: normal, Rhythm: regular, 19:25 Respiratory: the patient does not display signs of respiratory distress, Respirations: normal, no use of accessory muscles, no retractions, labored breathing, is not present, Breath sounds: are clear throughout, no decreased breath sounds, no stridor, no wheezing, 19:25 Abdomen/GI: Inspection: abdomen appears normal, Bowel sounds: active, all quadrants, Palpation: abdomen is soft and non-tender, in all quadrants, 19:25 Back: CVA tenderness, is absent, 19:25 Skin: no rash present. 19:25 Neuro: Orientation: to person, place \T\ time. Mentation: is normal, Motor: moves all fours, strength is normal, Vital Signs: 18:50 BP 112 / 54; Pulse 89; Resp 18; Temp 99; Pulse Ox 100% on R/A; Weight 61.23 kg; Height iw 5 ft. 6 in. ; 19:53 BP 112 / 60 Supine; Pulse 76; Pulse Ox 100% on R/A; vk 19:53 BP 109 / 69 Sitting; Pulse 91; Pulse Ox 100% on R/A; vk 19:53 BP 107 / 69 Standing; Pulse Ox 98% on R/A; vk 20:30 BP 111 / 70; Pulse 86; Resp 17 S; Pulse Ox 100% ; ha1 18:50 Body Mass Index 21.79 (61.23 kg, 167.64 cm) iw MDM: 18:59 Medical Screening Exam initiated cp 20:00 Differential diagnosis: group A strep tonsillitis, influenza, pharyngitis, cp retropharyngeal abcess tonsillitis, upper respiratory infection, uvulitis, COVID-19. 20:37 Data reviewed: vital signs, nurses notes, lab test result(s), and as a result, I will cp discharge patient. 20:37 I considered the following discharge prescriptions or medication management in the emergency department Medications were administered in the Emergency Department. See MAR. Counseling: I had a detailed discussion with the patient and/or guardian regarding the historical points, exam findings, and any diagnostic results supporting the discharge/admit diagnosis, lab results, to return to the emergency department if symptoms worsen or persist or if there are any questions or concerns that arise at home. Response to treatment: the patient's symptoms have mildly improved after treatment, and as a result, I will discharge patient. 03/23 19:05 Order name: Strep; Complete Time: 20:33 cp 03/23 19:05 Order name: SARS RAPID; Complete Time: 20:33 cp 03/23 19:05 Order name: Influenza Screen (a \T\ B); Complete Time: 20:33 cp 03/23 20:33 Interpretation: Reviewed. 03/23 19:05 Order name: Urinalysis w/ reflexes; Complete Time: 20:33 cp 03/23 20:33 Interpretation: Normal except: UCLA Turbid; UBLD 1+; UPROT TRACE; URBC 5-10; MUCUS 4+. 03/23 20:08 Order name: Throat Culture EDMS 03/23 19:07 Order name: Orthostatics; Complete Time: 19:53 cp 03/23 19:39 Order name: PO challenge; Complete Time: 19:54 cp Administered Medications: 19:54 Drug: Acetaminophen PO 650 mg PO once Route: PO; tm6 20:30 Follow up: Response: No adverse reaction; Marked relief of symptoms ha1 19:54 Drug: Ondansetron PO 4 mg PO once Route: PO; tm6 20:30 Follow up: Response: No adverse reaction; Marked relief of symptoms ha1 Disposition Summary: 03/23/24 20:38 Discharge Ordered Notes: Location: Home cp Problem: new cp Symptoms: have improved cp Condition: Stable cp Diagnosis - Nausea with vomiting, unspecified cp - Diarrhea, unspecified cp Followup: cp - With: Private Physician - When: 1 - 2 days - Reason: Worsening of condition Discharge Instructions: - Discharge Summary Sheet cp - Food Choices to Help Relieve Diarrhea, Adult cp - Diarrhea, Adult cp - Nausea and Vomiting, Adult cp Forms: - Medication Reconciliation Form cp - Antibiotic Education cp - Prescription Opioid Use cp - Patient Portal Instructions cp - Leadership Thank You Letter cp Prescriptions: - Zofran 4 mg Oral Tablet - take 1 tablet ORAL route every 12 hours As needed; 20 tablet; Refills: 0, cp Product Selection Permitted Signatures: Dispatcher [employer] EDMS Leny Rosenberg RN RN iw Boni Damon PA PA cp Belia Bueno RN RN me1 Donn Montez RN RN tm6 [place] Maya RN ha1 Corrections: (The following items were deleted from the chart) 19:05 19:05 Group A Streptococcus Rapid Sc+BA.LAB.BRZ ordered. EDAZ EDMS 19:05 19:05 SARS-COV-2 Antigen Rapid+I.LAB.BRZ ordered. EDAZ EDMS 19:05 19:05 Influenza Screen (A \T\ B)+BA.LAB.BRZ ordered. EDAZ EDAZ 19:05 19:05 Urinalysis+U.LAB.BRZ ordered. EDAZ EDAZ 03/24 18:25 03/23 19:00 Constitutional: Positive for body aches, chills, Negative for fever, cp cp 03/24 18:25 03/23 19:00 Cardiovascular: Negative for chest pain, cp cp 03/24 18:25 03/23 19:00 Respiratory: Negative for cough, shortness of breath, wheezing, cp cp 03/24 18:25 03/23 19:00 Abdomen/GI: Positive for nausea, vomiting, diarrhea, Negative for abdominal cp pain, constipation, cp 03/24 18:25 03/23 19:00 Eyes: Negative for injury, pain, redness, and discharge, cp cp 03/24 18:25 03/23 19:00 ENT: Positive for sore throat, Negative for drainage from ear(s), ear pain, cp difficulty swallowing, difficulty handling secretions, cp 03/24 18:25 10/20 19:00 Back: Negative for injury or acute deformity, cp cp 03/24 18:03/23: : Negative for urinary symptoms, pelvic pain, vaginal bleeding, vaginal cp discharge, cp 03/24: Neuro: Positive for headache, Negative for altered mental status, weakness, cp cp 03/24: All other systems are negative, cp cp
--- NOTE | 2024-03-23 20:38 | ER ---
Nurse's Notes [facility] Name: Chapis Delgado Age: 38 yrs Sex: Female : 1985 Arrival Date: 03/23/2024 Time: 18:41 Bed 14 Private MD: Diagnosis: Nausea with vomiting, unspecified;Diarrhea, unspecified Presentation: 03/23 18:50 Chief complaint: Patient states: woke up with sore throat , now is vomiting, diarrhea , iw body aches, feels dehydrated, head pounding , is approx 10 weeks . Coronavirus screen: Client presents with at least one sign or symptom that may indicate coronavirus-19. Ebola Screen: No symptoms or risks identified at this time. Initial Sepsis Screen: Does the patient meet any 2 criteria? No. Patient's initial sepsis screen is negative. Does the patient have a suspected source of infection? No. Patient's initial sepsis screen is negative. Risk Assessment: Do you want to hurt yourself or someone else? Patient reports no desire to harm self or others. Onset of symptoms was March 23, 2024. 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 - Infectious Disease History:: Denies. - Social history:: Smoking status: . Screenin:06 [facility] ED Fall Risk Assessment (Adult) History of falling in the last 3 months, me1 including since admission No falls in past 3 months (0 pts) Confusion or Disorientation No (0 pts) Intoxicated or Sedated No (0 pts) Impaired Gait No (0 pts) Mobility Assist Device Used No (0 pt) Altered Elimination No (0 pt) Score/Fall Risk Level 0 - 2 = Low Risk Maintained a safe environment, Provided non-skid footwear, Hourly rounding (assess needs \T\ fall precautionary measures) done. Abuse screen: Denies threats or abuse. Nutritional screening: No deficits noted. Tuberculosis screening: No symptoms or risk factors identified. Assessment: 19:06 General: Appears uncomfortable, ill, well groomed, well developed, well nourished, me1 Behavior is calm, cooperative, appropriate for age, Reports body aches, headache, n/v/d. Pain: Complains of pain in generalized Pain does not radiate. Pain currently is 5 out of 10 on a pain scale. Quality of pain is described as aching, Pain began gradually. Neuro: Level of Consciousness is awake, alert, obeys commands, Oriented to person, place, time, situation, Appropriate for age. Cardiovascular: Patient's skin is warm and dry. Respiratory: Airway is patent Respiratory effort is even, unlabored, Respiratory pattern is regular, symmetrical. GI: Reports diarrhea, nausea, vomiting. : No signs and/or symptoms were reported regarding the genitourinary system. EENT: No signs and/or symptoms were reported regarding the EENT system. Derm: Skin is intact, is healthy with good turgor, Skin is pink, warm \T\ dry. Musculoskeletal: Reports pain in generalized. 20:22 Reassessment: Patient and/or family updated on plan of care and expected duration. Pain ha1 level reassessed. Patient is alert, oriented x 3, equal unlabored respirations, skin warm/dry/pink. Patient states feeling better. Patient states symptoms have improved. Vital Signs: 18:50 BP 112 / 54; Pulse 89; Resp 18; Temp 99; Pulse Ox 100% on R/A; Weight 61.23 kg; Height iw 5 ft. 6 in. ; 19:53 BP 112 / 60 Supine; Pulse 76; Pulse Ox 100% on R/A; vk 19:53 BP 109 / 69 Sitting; Pulse 91; Pulse Ox 100% on R/A; vk 19:53 BP 107 / 69 Standing; Pulse Ox 98% on R/A; vk 20:30 BP 111 / 70; Pulse 86; Resp 17 S; Pulse Ox 100% ; ha1 18:50 Body Mass Index 21.79 (61.23 kg, 167.64 cm) iw ED Course: 18:43 Patient arrived in ED. im 18:51 Boni Damon PA is PHCP. cp 18:51 Boni Armstrong MD is Attending Physician. cp 18:52 Triage completed. iw 18:52 Arm band placed on. iw 18:56 Belia Bueno, RN is Primary Nurse. me1 19:06 Patient has correct armband on for positive identification. Bed in low position. Call ma1 light in reach. Side rails up X2. Provided Education on: POC. Verbalized understanding. . Client placed on continuous cardiac and pulse oximetry monitoring. NIBP monitoring applied. Pulse ox on. NIBP on. 19:06 No provider procedures requiring assistance completed. me1 19:36 Urinalysis w/ reflexes Sent. vk 19:36 Influenza Screen (a \T\ B) Sent. vk 19:36 SARS RAPID Sent. vk 19:36 Strep Sent. vk 19:36 Urine collected: clean catch specimen, clear, COVID swab sent to lab. Flu and/or RSV vk swab sent to lab. Strep swab sent to lab. 20:30 Patient did not have IV access during this emergency room visit. ha1 Administered Medications: 19:54 Drug: Acetaminophen PO 650 mg PO once Route: PO; tm6 20:30 Follow up: Response: No adverse reaction; Marked relief of symptoms ha1 19:54 Drug: Ondansetron PO 4 mg PO once Route: PO; tm6 20:30 Follow up: Response: No adverse reaction; Marked relief of symptoms ha1 Medication: 19:06 VIS not applicable for this client. ma1 Outcome: 20:38 Discharge ordered by . cp 21:00 Patient left the ED. ha1 21:00 Discharged to home ambulatory, ha1 21:00 Condition: stable 21:00 Discharge instructions given to patient, Instructed on discharge instructions, follow up and referral plans. medication usage, Demonstrated understanding of instructions, follow-up care, medications, Prescriptions given X 1, Signatures: Leny Rosenberg, RN RN Boin Damon PA PA cp [place] Maya RN RN 1 Alma Steward Belia Bueno, RN RN ma1 Donn Montez RN RN 6 Blanche Hernandez Corrections: (The following items were deleted from the chart) 18:53 18:50 BP 112 / 54; Pulse 89bpm; Resp 18bpm; Pulse Ox 100% RA; Temp 99F; iw iw 18:54 18:53 6, Living 2, LMP 01/2024, unknown iw iw 22:57 21:11 Patient left the ED. ha1 ha1
[2024-03-24 00:38] VITALS: TEMP 99
[2024-03-24 00:39] VITALS: BP 107/69; O2SAT 98
== END 2024-03-23 21:11 | disposition home or self-care (01) ==
LOC: ER 18:41
DX: O99.611 Diseases of the digestive system complicating pregnancy, first trimester (principal); Z3A.10 10 weeks gestation of pregnancy; Z11.52 Encounter for screening for COVID-19
CPT/HCPCS: 87070; 81001; 36415; 87081; 87804 ×2; 99284; 87811; Q0162

== ENCOUNTER 2024-03-31 12:44 | Emergency (ER) | payer OTHER ==
--- OUTSIDE RECORDS SUMMARY | 2024-03-31 12:47 | XMS REPORT | Continuity of Care Document ---
Author Name Unknown Address [address] [place] [address] [facility] Address [address] [place] [address] Care Team Providers Care Embossing Clerk Name Role Phone Pcp, Patient Does Not Have A Primary Care Physic mikey NITZA BYRNES Attending Clinician Unavailable NITZA BYRNES Attending Clinician Unavailable NAT MAYER Attending Clinician Unavailable 2, [facility] Attending Clinician Unavailable Nitza Byrnes MD Attending Clinician [phone] Doctor Unassigned, [place] Attending Clinician U navailable 2, [facility] Attending Clinician Unavailable BLANCHE CHENG Attending Clinician Unavailable Blanche Cheng MD Attending Clinician [phone] RYLEE HAY Attending Clinician RYLEE Kincaid Attending Clinician BLANCHE Casarez Admitting Clinician Unavailable Blanche Cheng MD Admitting Clinician [phone] Payers Payer Name Policy Type Policy Number Effective Date Expirati on Date Source [place] [employer] [facility] STAR [id number] 2024 00:00:00 Problems Condition Name Condition Details Condition Category Status Onset Date Resolution Date Last Treatment Date Treating Clinician Comments Source Previous section Previous section Disease Active 2023-06 00:00: 00 [facility] High-risk in first trimester High-risk in first trimester Disease Active 2023-06 00:00: 00 [facility] Nausea and vomiting during prior to 22 weeks gestation Nausea and vomiting during prior to 22 weeks gestation Disease Active 2023-06 00:00: 00 [facility] History of anxiety History of anxiety Disease Active 2023-06 00:00: 00 [facility] AMA (advanced maternal age) multigravi da 35+, first trimester AMA (advanced maternal age) multigravi da 35+, first trimester Disease Active 08-13 00:00: 00 [facility] Anemia due to acute blood loss Anemia due to acute blood loss Disease Resolve d 08-23 00:00: 00 2024-03-10 00:00:00 2024-03-10 15:43:25 [facility] Incomplete miscarriag e Incomplete miscarriag e Disease Resolve d 08-23 00:00: 00 2023-09-06 00:00:00 2023-09-06 09:29:54 [facility] Missed Missed Disease Resolve d 08-13 00:00: 00 2023-09-06 00:00:00 2023-09-06 09:29:53 [facility] Allergies, Adverse Reactions, Alerts Allergy Name Allergy Type Status Severity Reaction(s) Onset Date Inactive Date Treating Clinician Comments Source NO KNOWN ALLERGIE S Drug Class Active [facility] Social History Social Habit Start Date Stop Date Quantity Comments Source ASSERTION 2024-01-24 00:00:00 [facility] Alcoholic beverage intake 2024-03-17 00:00:00 2024-03-17 00:00:00 Lifetime non-drinker (finding) [facility] Tobacco use and exposure 2024-03-10 00:00:00 2024-03-10 00:00:00 Smokeless tobacco non-user [facility] Alcohol intake 2023-09-06 00:00:00 2023-09-06 00:00:00 Lifetime non-drinker (finding) [facility] History of Social function 2023-08-15 00:00:00 2023-08-15 00:00:00 [facility] Sex assigned at 1985 00:00:00 1985 00:00:00 [facility] Smoking Status Start Date Stop Date Source Never smoked tobacco [facility] Medications Ordered Medication Name Filled Medication Name Start Date Stop Date Current Medication? Ordering Clinician Indication Dosage Frequency Signature (SIG) Comments Components Source vit no.124/iron /folic ( VITAMIN ORAL) 2023-06 15:42: 58 03-10 00:00 :00 No Take by mouth. [facility] pyridoxine, VITAMIN B-6, (VITAMIN B-6) 25 mg tablet 2023-06 00:00: 00 Yes [id number] 25mg Take 1 tablet by mouth every 6 (six) hours as needed for Nausea and Vomiting (N/V). [facility] doxylamine (UNISOM, DOXYLAMINE, ) 25 mg tablet 2023-06 00:00: 00 Yes [id number] 25mg Take 1 tablet by mouth at bedtime as needed for Nausea and Vomiting (N/V). [facility] proMETHazin e 25 mg tablet 2023-06 00:00: 00 Yes [id number] 25mg Take 1 tablet by mouth every 4 (four) hours as needed for Nausea and Vomiting (N/V). [facility] rizatriptan 10 mg tablet 09-05 08:43: 24 Yes TAKE 1 TABLET BY ORAL ROUTE NEEDED, FOR ABORTIVE MIGRAINE. [facility] clonazePAM 0.5 mg tablet 09-05 08:43: 13 Yes .5mg Take 1 tablet by mouth in the morning and 1 tablet in the evening. [facility] vit no.124/iron /folic ( VITAMIN ORAL) 09-05 08:42: 45 Yes Take by mouth. [facility] ferrous sulfate (IRON, FERROUS SULFATE,) 325 mg (65 mg iron) tablet 09-05 00:00: 00 03-10 00:00 :00 No [id number] 325mg Take 1 tablet by mouth in the morning and 1 tablet in the evening. [facility] bisacodyL (DULCOLAX, BISACODYL,) 5 mg EC tablet 4-04 00:00: 00 03-10 00:00 :00 No [id number] 5mg Take 1 tablet by mouth once daily as needed for Constipati on. [facility] escitalopra m oxalate 20 mg tablet 25 00:00: 00 03-17 00:00 :00 No TAKE 1 TABLET BY MOUTH EVERY DAY FOR [address] [facility] ibuprofen (IBU) tablet 800 mg 08-23 16:56: 00 08-23 16:59 :00 No 800mg 800 mg, Oral, ONCE, 1 dose, On Sun08/24/23 at 1200, Routine [facility] lactated ringers IV infusion 1,000 mL 08-23 14:15: 00 Yes 1000mL at 75 mL/hr, 1,000 mL, IV Infusion, CONTINUOUS , Starting on Sun08/24/23 at 0915, Until Discontinu ed, Routine, PACU [facility] HYDROcodone -acetaminop hen (NORCO 5) 5-325 mg tablet 1 tablet 08-23 14:15: 00 08-23 14:21 :00 No 1{tbl} 1 tablet, Oral, ONCE, 1 dose, On Sun08/24/23 at 0915, Routine, PACU [facility] vit no.124/iron /folic ( VITAMIN ORAL) 08-23 12:35: 36 Yes Take by mouth. [facility] doxycycline hyclate (Vibramycin ) capsule 100 mg 08-23 10:30: 00 08-23 10:24 :00 No 100mg 100 mg, Oral, ONCE, 1 dose, On Sun08/24/23 at 0530, MEREDITH
Re ason for Anti-Infec tive: Empiric Non-Surgic al Prophylaxi s
Durat ion of therapy: Once (ED) [facility] miSOPROStoL (CYTOTEC) tablet 800 mcg 08-23 10:15: 00 08-23 10:03 :00 No 800ug 800 mcg, Vaginal, ONCE, 1 dose, On Sun08/24/23 at 0515, Routine [facility] oxytocin (PITOCIN) 30 units in NS 500 mL IV infusion 08-23 10:00: 00 Yes 125mL/h 125 mL/hr, IV Infusion, CONTINUOUS , Starting on Sun08/24/[address] [facility] FENTanyl PF (SUBLIMAZE (PF)) injection 100 mcg 08-23 09:49: 00 08-23 09:50 :00 No 100ug 100 mcg, Slow IV Push, ONCE, 1 dose, On Sun08/24/23 at 0500, Routine [facility] D5W-LR IV infusion 1,000 mL 08-23 09:00: 00 Yes 1000mL at 125 mL/hr, IV Infusion, CONTINUOUS , Starting on Sun08/24/23 at 0400, Until Discontinu ed, Routine [facility] HYDROcodone -acetaminop hen 5-325 mg tablet 08-23 00:00: 00 03-17 00:00 :00 No [id number] 1{tbl} Take 1 tablet by mouth every 6 (six) hours as needed for Pain (scale 7-10). Indication s: acute pain [facility] ibuprofen (IBU) tablet 600 mg 08-22 20:30: 00 08-22 19:42 :[id number] [facility] miSOPROStoL (CYTOTEC) tablet 800 mcg 08-22 20:15: 00 08-22 19:24 :[id number] [facility] ibuprofen 600 mg tablet 08-22 00:00: 00 03-10 00:00 :00 No [id number] 600mg Take 1 tablet by mouth every 6 (six) hours as needed for Pain (scale 1-3) or Pain (scale 4-6). [facility] proMETHazin e 25 mg tablet 08-22 00:00: 00 03-10 00:00 :00 No [id number] 25mg Take 1 tablet by mouth every 4 (four) hours as needed for Nausea and Vomiting (N/V). [facility] HYDROcodone -acetaminop hen 5-325 mg tablet 08-22 00:00: 00 08-23 00:00 :00 No 4647 1{tbl} Take 1 tablet by mouth every 6 (six) hours as needed for Pain (scale 7-10). Indication s: acute pain [facility] HYDROcodone -acetaminop hen 5-325 mg tablet 08-19 00:00: 00 08-22 00:00 :00 No 4647 1{tbl} Take 1 tablet by mouth every 6 (six) hours as needed for Pain (scale 7-10) for up to 7 days. Indication s: acute pain [facility] miSOPROStoL (CYTOTEC) tablet 800 mcg 08-15 01:00: 00 08-15 00:59 :[id number] [facility] ibuprofen 600 mg tablet 08-14 00:00: 00 08-22 00:00 :00 No [id number] 600mg Take 1 tablet by mouth every 6 (six) hours as needed for Pain (scale 1-3) or Pain (scale 4-6). [facility] proMETHazin e 25 mg tablet 08-14 00:00: 00 08-22 00:00 :00 No [id number] 25mg Take 1 tablet by mouth every 4 (four) hours as needed for Nausea and Vomiting (N/V). [facility] HYDROcodone -acetaminop hen 5-325 mg tablet 08-14 00:00: 00 08-22 04:59 :00 No 4647 1{tbl} Take 1 tablet by mouth every 6 (six) hours as needed for Pain (scale 7-10) for up to 7 days. Indication s: acute pain [facility] vit no.124/iron /folic ( VITAMIN ORAL) 12 10:01: 18 Yes Take by mouth. [facility] Vital Signs Vital Name Observation Time Observation Value Comments S ource Systolic blood pressure 2024-03-17 19:33:00 106 mm[Hg] [facility] Diastolic blood pressure 2024-03-17 19:33:00 67 mm[Hg] [facility] Heart rate 2024-03-17 19:33:00 67 /min [facility] Body temperature 2024-03-17 19:33:00 36.61 Anastasia [facility] Body height 2024-03-17 19:33:00 167.6 cm Univ ersity of [facility] Body weight 2024-03-17 19:33:00 60.419 kg Univ ersity of [facility] BMI 2024-03-17 19:33:00 21.50 kg/m2 [facility] Systolic blood pressure 2024-03-10 20:05:00 111 mm[Hg] [place] [facility] Diastolic blood pressure 2024-03-10 20:05:00 75 mm[Hg] [facility] Heart rate 2024-03-10 20:05:00 68 /min [facility] temperature 2024-03-10 20:05:00 36.33 Anastasia [facility] Body height 2024-03-10 20:05:00 167.6 cm [facility] Body weight 2024-03-10 20:05:00 60.782 kg [facility] BMI 2024-03-10 20:05:00 21.63 kg/m2 [facility] Systolic blood pressure 2023-09-06 13:42:00 120 mm[Hg] [place] [facility] Diastolic blood pressure 2023-09-06 13:42:00 67 mm[Hg] [facility] Heart rate 2023-09-06 13:42:00 75 /min [facility] Body temperature 2023-09-06 13:42:00 36.5 Anastasia [facility] Body height 2023-09-06 13:42:00 167.6 cm [facility] Body weight 2023-09-06 13:42:00 64.683 kg Univ ersity of [facility] BMI 2023-09-06 13:42:00 23.02 kg/m2 Univ ersity [facility] Systolic blood pressure 2023-08-24 15:10:00 115 mm[Hg] [facility] Diastolic blood pressure 2023-08-24 15:10:00 53 mm[Hg] [facility] Heart rate 2023-08-24 15:10:00 86 /min Unive [facility] Oxygen saturation in Arterial blood by Pulse oximetry 2023-08-24 15:10:00 100 /min [facility] Respiratory rate 2023-08-24 14:29:00 18 /min [facility] Body temperature 2023-08-24 13:47:00 36.44 Anastasia [facility] Body height 2023-08-24 08:34:00 167.6 cm [facility] Body weight 2023-08-24 08:34:00 63.957 kg [facility] BMI 2023-08-24 08:34:00 22.76 kg/m2 [facility] Body height 2023-08-23 18:49:00 167.6 cm [facility] Body weight 2023-08-23 18:49:00 63.957 kg [facility] BMI 2023-08-23 18:49:00 22.76 kg/m2 [facility] Systolic blood pressure 2023-08-23 18:49:00 92 mm[Hg] [facility] Diastolic blood pressure 2023-08-23 18:49:00 58 mm[Hg] [facility] Heart rate 2023-08-23 18:49:00 71 /min Unive [facility] Respiratory rate 2023-08-23 18:49:00 18 /min [facility] Systolic blood pressure 2023-08-15 20:43:00 105 mm[Hg] [facility] Diastolic blood pressure 2023-08-15 20:43:00 59 mm[Hg] [facility] Heart rate 2023-08-15 20:42:00 63 /min Unive [facility] Body temperature 2023-08-15 20:42:00 36.5 Anastasia [facility] Respiratory rate 2023-08-15 20:42:00 18 /min [facility] Body height 2023-08-15 20:42:00 167.6 cm [facility] Body weight 2023-08-15 20:42:00 64.139 kg [facility] BMI 2023-08-15 20:42:00 22.82 kg/m2 [facility] Systolic blood pressure 2023-08-14 14:59:00 98 mm[Hg] [place] [facility] Diastolic blood pressure 2023-08-14 14:59:00 63 mm[Hg] [place] [facility] Heart rate 2023-08-14 14:59:00 118 /min [facility] Respiratory rate 2023-08-14 14:59:00 18 /min [facility] Body height 2023-08-14 14:59:00 167.6 cm [facility] Body weight 2023-08-14 14:59:00 64.864 kg [facility] BMI 2023-08-14 14:59:00 23.08 kg/m2 [facility] Procedures Procedure Date / Time Performed Performing Clinician Source US OB TRANSVAGINAL 2024-03-10 21:57:55 Nitza Byrnes [facility] POCT TEST 2024-03-10 00:00:00 Nitza Byrnes [facility] POCT TEST 2023-09-06 00:00:00 Nitza Byrnes [facility] FIRST TRIMESTER LESS THAN 14 WEEKS WITH TRANSVAGINAL 2023-08-24 11:39:00 Adum, Blanche Chiang [facility] CBC WITH DIFF 2023-08-24 10:30:00 Adum, Blanche Zelaya [facility] OB TRANSVAGINAL 2023-08-23 19:24:35 Nitza Byrnes [facility] PELVIS COMPLETE WITH TRANSVAGINAL 2023-08-15 16:15:14 Rylee Hay [facility] US OB TRANSVAGINAL 2023-08-14 15:30:01 Jaci Hayjessica [facility] Encounters Start Date/Time End Date/Time Encounter Type Admission Type Attending Clinicians Care Facility Care Department Encounter ID Source 2024-05-12 09:45:00 2024-05-12 09:45:00 Outpatient R NITZA BYRNES VIEN [facility] [id number] [facility] 2024-04-15 09:30:00 2024-04-15 09:30:00 Outpatient R NAT MAYER [facility] [id number] [facility] 2024-03-24 09:30:00 2024-03-24 09:45:00 Museum Assistant Visit 2, [facility] Nitza Byrnes 2, Adc [facility] 1.2.840.114 350.1.13.10 4.2.7.2.[id number] [facility] 2024-03-24 09:30:00 2024-03-24 09:30:00 Outpatient R NITZA BYRNES VIEN [facility] [id number] [facility] 2024-03-17 14:15:00 2024-03-17 14:55:18 Outpatient R NITZA BYRNES VIEN [facility] [id number] [facility] 2024-03-17 14:15:00 2024-03-17 14:55:18 Initial Visit Nitza Byrnes [facility] 1.2.840.114 350.1.13.10 4.2.7.2.[id number] [facility] 2024-03-10 15:00:00 2024-03-10 15:42:59 Outpatient R NITZA BYRNES VIEN [facility] [id number] [facility] 2024-03-10 15:00:00 2024-03-10 15:42:59 Office Visit Nitza Byrnes [facility] 1.2.840.114 350.1.13.10 4.2.7.2.[id number] [facility] 2023-09-07 00:00:00 2023-10-13 18:13:43 Patient Secure Msg Doctor Unassigned, [place] [facility] 1.2.840.114 350.1.13.10 4.2.7.2.[id number] [facility] 2023-09-06 10:30:00 2023-09-06 10:45:00 Museum Assistant Visit 2, [facility] Nitza Brynes [facility] 1..840.114 350.1.13.10 4.2.7.2.[id number] [facility] 2023-09-06 09:00:00 2023-09-06 09:05:55 Outpatient R NITZA BYRNES [facility] [id number] [facility] 2023-09-06 09:00:00 2023-09-06 09:05:55 Office Visit Nitza Byrnes [facility] 1..840.114 350.1.13.10 4.2.7.2.[id number] [facility] 2023-08-30 13:45:00 2023-08-30 13:45:00 Outpatient R NITZA BYRNES [facility] [id number] [facility] 2023-08-24 02:18:00 2023-08-24 12:30:00 Outpatient P BLANCHE CHENG [facility] [id number] [facility] 2023-08-24 02:18:00 2023-08-24 12:30:00 Hospital Encounter Blanche Cheng [facility] 1..840.114 350.1.13.10 4.2.7.2.[id number] [facility] 2023-08-24 00:00:00 2023-08-24 00:00:00 Telephone Nitza Byrnes [facility] 1.2.840.114 350.1.13.10 4.2.7.2.[id number] [facility] 2023-08-23 15:30:00 2023-08-23 15:45:00 Museum Assistant Visit 2, [facility] Nitza Byrnes [facility] 1.2.840.114 350.1.13.10 4.2.7.2.[id number] [facility] 2023-08-23 13:45:00 2023-08-23 14:41:08 Outpatient R NITZA BYRNES [facility] [id number] [facility] 2023-08-23 13:45:00 2023-08-23 14:41:08 Office Visit Nitza Byrnes [facility] 1.2.840.114 350.1.13.10 4.2.7.2.[id number] [facility] 2023-08-23 00:00:00 2023-08-23 00:00:00 Prep For Surgery Nitza Byrnes [facility] 1.2.840.114 350.1.13.10 4.2.7.2.[id number] [facility] 2023-08-20 00:00:00 2023-08-20 00:00:00 Case Management Nitza Byrnes [facility] 1.2.840.114 350.1.13.10 4.2.7.2.[id number] [facility] 2023-08-18 00:00:00 2023-08-18 00:00:00 Refill Nitza Byrnes [facility] 1.2.840.114 350.1.13.10 4.2.7.2.[id number] [facility] 2023-08-17 00:00:00 2023-08-17 00:00:00 Outpatient R UREÑA-LISETTE S, RYLEE UREÑA-LISETTE S, RYLEE [facility] [id number] [facility] 2023-08-15 10:10:52 2023-08-15 23:59:00 Outpatient R UREÑA-LISETTE S, RYLEE UREÑA-LISETTE S, RYLEE [facility] [id number] [facility] 2023-08-15 10:10:52 2023-08-15 23:59:00 Hospital Encounter Ureña-Lisette sampson Rylee [facility] 1.2.840.114 350.1.13.10 4.2.7.2.[id number] [facility] 2023-08-15 15:30:00 2023-08-15 16:45:43 Routine Visit Nitza Byrnes [facility] 1.2.840.114 350.1.13.10 4.2.7.2.[id number] [facility] 2023-08-15 00:00:00 2023-08-15 00:00:00 Tele[facility] 1.2.840.114 350.1.13.10 4.2.7.2.[id number] [facility] 2023-08-14 10:00:00 2023-08-14 10:32:54 Outpatient R UREÑA-LISETTE S, RYLEE UREÑA-LISETTE S, RYLEE [facility] [id number] [facility] 2023-08-14 10:00:00 2023-08-14 10:32:54 Initial Visit Kin sampson Rylee [facility] 1.2.840.114 350.1.13.10 4.2.7.2.[id number] [facility] Results Test Description Test Time Test Comments Results Result Co mments Source [facility] [id number] 13:44:00* Test Item Value Reference Range Interpretation Comme nts POCT PREG (test code = 1605) Positive On board controls acceptable with C Line (test code = 3574) Yes POCT PREG LOT # (test code = 3575) POCT PREG TEST DATE ( test code = 3576) [facility] [id number] 13:44:00* Test Item Value Reference Range Interpretation Comme nts POCT PREG (test code = 1605) Positive On board controls acceptable with C Line (test code = 3574) Yes POCT PREG LOT # (test code = 3575) POCT PREG TEST DATE ( test code = 3576) [facility] with [id number] 13:30:51* Test Item Value Reference Range Interpretation [...] 34.1 g/dL 31.6-35.1 RDW-SD (test code = 45269-0) 42.6 fL 39.0-49.9 RDW-CV (test code = 788-0) 12.8 % 12.0-15.5 PLT (test code = 777-3) 142 166-358 L MPV (test code = 42879-9) 10.3 fL 9.5-12.9 NRBC/100 WBC (test code = 5544056111) 0.0 0.0-10.0 NRBC x10^3 (test code = 8551660519) See_Comment [Automated [employer]] The system which generated this result transmitted reference range: 10*3/?L. The reference range was not used to interpret this result as normal/abnormal. GRAN MAT (NEUT) % (test code = 770-8) 72.0 % IMM GRAN % (test code = 6040797125) 0.40 % LYMPH % (test code = 736-9) 21.2 % MONO % (test code = 5905-5) 5.0 % EOS % (test code = 713-8) 0.9 % BASO % (test code = 706-2) 0.5 % GRAN MAT x10^3(ANC) (test code = 3137549848) 5.47 10*3/uL 1.88-7.09 IMM GRAN x10^3 (test code = 0632889232) 0.03 10*3/uL 0.00-0.06 LYMPH x10^3 (test code = 731-0) 1.61 10*3/uL 1.32-3.29 MONO x10^3 (test code = 742-7) 0.38 10*3/uL 0.33-0.92 EOS x10^3 (test code = 711-2) 0.07 10*3/uL 0.03-0.39 BASO x10^3 (test code = 704-7) 0.04 10*3/uL 0.01-0.07 Lab Interpretation (test code = 76025-1) Abnormal [facility] FIRST TRIMESTER LESS THAN 14 WEEKS WITH [id number] 12:34:50US FIRST TRIMESTER LESS THAN 14 WEEKS WITH TRANSVAGINAL Ordering Provider: BLANCHE Chiang ADUM HISTORY: ?check for retained products COMPARISON: Ultrasound 08/15/2023 Technical quality: adequate TECHNIQUE: Sonographic evaluation of the uterus and bilateral adnexa. Cineclips were obtained for evaluation of retained intrauterine pregnancyproducts. FINDINGS/[facility] PELVIS COMPLETE WITH TRANSVAGINAL 2023-08-15 16:25:37HISTORY: [...] 10 week size intrauterine without cardiacactivity, confirming demise.[facility] History and Physical Notes Date/Time Note Provider Source 2023-08-24 05:14:12 Images from the original note were not included. REGISTRAR MUSEUM ADMISSION H&P NOTE Date of Service: 08/24/2023 Chief Complaint: Miscarriage Vaginal bleeding History Destiny Delgaod is a 37 year old female who is undergoing a medical management for missed at 10wks gestation. She received 2nd dose of Cytotec on 08/22 and presented to [facility] with profuse bleeding and cramps. US at [facility] showed RPOC but the provider reported that unable to visualize her cervix and initiated transfer to . She became hypotensive prior to transfuse and received 2 units of PRBCs. At this stage, they reported removing clots from the vagina and visualized POC at the cervix - but were unable to most of it. Vaginal packing was placed and she was transferred at [facility]. She was also give tranexamic acid and [...] proceed with a D&C Blanche Cheng MD [facility] - Health Notes Date/Time Note Provider Source 2024-03-24 09:30:00 Images from the original note were not included. Venipuncture collection performed by clean technique on the left anticubitus. Total of 1 attempts were made. Slight pressure and a bandage/dressing were applied to the site(s). The patient experienced no complications. 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 Expectations for weight gain this include 25-35 pounds. Encouraged to call if have any additional questions or concerns. Discussed aneuploidy and carrier screening; patient opts for panorama and [employer]. 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 Venipuncture collection performed by clean technique on the left anticubitus. Total of 1 attempts were made. Slight pressure and a bandage/dressing were applied to the site(s). The patient experienced no complications. The following specimens were processed according to instructions and sent to [facility] laboratories per lab order on 09/06/2023 : LT BLUE SST 1 RED LAV 2 PPT DK GREEN (LiHep) DK GREEN (SodH) BACA DK BLUE (K2) DK BLUE (S) ACD Blood Culture NIPT/NTD [facility] 2023-08-24 14:35:08 Notified patient that prescription was sent to [facility] in [place]. Mark Pierce RN 08/24/2023 2:35 PM Mark Pierce RN [facility] 2023-08-24 13:59:07 Refilled Blanche Cheng MD [facility] 2023-08-24 13:17:06 Patient calling says she was just discharged today from [facility] had a procedure done and has been in pain and will not have meds for weekend , wants a refill on HYDROcodone-acetaminophen 5-325 mg tablet has only enough for today. Roxanna Musa [facility] 2023-08-24 10:28:34 Problem: Falls, Risk of Goal: [...] Goal: Absence of infection 08/24/2023 1028 by Gaye Chong RN Outcome: [...] Outcome: Progressing as expected Gaye Chong RN [facility] 2023-08-24 08:10:31 Pre-operative Diagnosis: Incomplete miscarriage Post [...] pathology. Blanche Cheng MD 08/24/2023 8:41 AM [facility] 2023-08-24 05:13:38 Summary: US COA called per provider call out US. Asked if this was something that could wait for 7am tech. Per COA immediate call out. COA aware eta is 1hr. Delfina Portillo [facility] 2023-08-23 15:30:00 Images from the original note were not included. Venipuncture collection performed by clean technique on the left anticubitus. Total of 1 attempts were made. Slight pressure and a bandage/dressing were applied to the site(s). The patient experienced no complications. The following specimens were processed according to instructions and sent to [facility] laboratories per lab order on 08/23/2023 : LT BLUE SST RED LAV 2 PPT DK GREEN (LiHep) DK GREEN (SodH) BACA DK BLUE (K2) DK BLUE (S) ACD Blood Culture NIPT/NTD Patient stated only draw the blood bank tube because [facility] wanted to know her blood type. Funmilayo Escalante 08/23/2023 2:46 PM [facility] 2023-08-23 13:45:00 Addended by: MARK PIERCE on: 08/23/2023 02:43 PM Modules accepted: Orders Mark Pierce RN [facility] 2023-08-20 09:55:40 Contacted patient. She got cytotec [...] orders: Motrin 600mg and tylenol 500mg q6h. [place] sent for severe pain. Patient will need to be evaluated if condition continues. Spoke with patient. Patient advised of all orders and recommendations. Patient given strong ER precautions. Patient verbalized understanding. Mark Pierce RN 08/20/2023 9:59 AM Mark Pierce RN [facility] 2023-08-15 12:43:23 Spoke with patient, states that she was sent to get USN as she was told yesterday that there was no heartbeat. Patient had USN today confirming demise. Patient wanting plan of care. Notified economic analyst provider of patients concerns. Appt scheduled to go over USN and plan of care. Margarette Yates RN 08/15/2023 12:46 PM Margarette Yates RN [facility] 2023-08-15 12:01:10 Patient is calling to go over ultrasound results and what she needs to do next. She is requesting a call back as soon as possible. Kelly Wilkinson [facility] 2023-08-14 10:00:00 Addended by: RYLEE HAY on: 08/14/2023 02:35 PM Modules accepted: Orders [facility]
--- NOTE | 2024-03-31 14:04 | RAD REPORT ---
EXAM: CT brain without contrast HISTORY: Dizziness COMPARISON: None TECHNIQUE: Multiple contiguous axial images were obtained and a CT of the brain without contrast.. Sagittal and coronal reconstruction performed. Automated exposure control, adjustment of the mA and/or kV according to patient size, and/or iterative reconstruction. Unless otherwise specified, incidental f indings do not require dedicated imaging follow-u. Patient's abdomen was shielded FINDINGS: An intracranial bleed is not seen Ventricles are normal caliber No extra-axial fluid collection noted No significant hypodensity within the brain Moderate ethmoid and sphenoid sinusitis IMPRESSION: No acute intracranial abnormality noted. Moderate sinusitis If the patient's symptoms persist MRI of the brain would be recommended.
[2024-03-31 14:12] LABS: Absolute Eosinophils 0.1 K/uL (0-0.5); Absolute Lymphocytes (CBC) 1.7 K/uL (0.7-4.9); Absolute Monocytes 0.5 K/uL (0.1-1.3); Basophils % 0.4 % (0-1.3); Eosinophils % 1.7 % (0-4.4); Hematocrit 34.6 % (36.0-45.0); Hemoglobin 11.8 g/dL (12.0-15.0); Lymphocytes % 27.1 % (15.3-44.8); MCH 29.9 pg (27.0-35.0); MCHC 34.1 g/dL (32.0-36.0); MCV 87.5 fL (80-100); MPV 7.6 fL (7.6-11.3); Monocytes % 8.5 % (3.3-12.3); Neutrophils % 62.3 % (41.7-73.7); Platelets 239 thou/uL (152-406); RBC Red Blood Cell Count 3.95 M/uL (3.86-4.86); Red Cell Distribution Width 12.9 % (12.1-15.2)
--- NOTE | 2024-03-31 14:13 | RAD REPORT ---
EXAMINATION: CTA CHEST PE CLINICAL INDICATION: Shortness of breath TECHNIQUE: 100 cc 370 Isovue administered intravenously. This examination was performed according to an angiographic protocol with 3D post-processing. This involves 3D reconstructions, MIPs, volume rendered images and/or shaded surface rendering. One or more of the following dose reduction techniqu es were used: Automated exposure control, adjustment of the mA and/or kV according to patient size, and/or iterative reconstruction. Unless otherwise specified, incidental findings do not require dedic ated imaging follow-up. [id number]. The ordering physician felt that the benefits diagnosis a pulmonary embolus outweighed the small risk of radiation exposure to the fetus. The patient's abdomen shielded. Informed consent was given verbally as well as in writing by the patient's to proceed with the exam. COMPARISON: No prior exam. FINDINGS: A pulmonary embolus is not seen. An aortic aneurysm not noted. No pleural effusion. No pericardial effusion. Lungs are clear. Mild fatty liver. Bilateral breast implants. IMPRESSION: No evidence of a pulmonary embolism
[2024-03-31 14:18] LABS: PT Prothrombin Time 11.1 SECONDS (9.4-12.5); Protime INR 0.99
[2024-03-31 14:32] LABS: Albumin 2.7 g/dL (3.4-5.0); Albumin/Globulin Ratio 0.6 (1.1-1.8); Anion Gap 4.8 mEq/L (5.0-15.0); Bilirubin Direct 0.2 mg/dL (0-0.2); Bilirubin Indirect, Calculated 0.2 mg/dL (0.2-0.8); Bilirubin Total 0.4 mg/dL (0.2-1.0); Globulin 4.2 g/dL (2.3-3.5); Magnesium 1.9 mg/dL (1.6-2.4); Potassium 2.8 mEq/L (3.5-5.1); Protein, Total 6.9 g/dL (6.4-8.2); Troponin High Sensitivity 8.3 pg/mL (<58.9)
--- NOTE | 2024-03-31 15:44 | ER ---
Nurse's Notes [facility] Name: Chapis Delgado Age: 38 yrs Sex: Female : 1985 Arrival Date: 03/31/2024 Time: 12:44 Bed 18 Private MD: Diagnosis: Bronchitis, viral illness, strep exposure, nausea/vomiting Presentation: 03/31 13:19 Chief complaint: Patient states: Shortness of breath onset 4 days ago. Pt states that cm10 the shortness of breath is worse with ambulation. Pt states that she was in the hospital last week. PT reports having a cough. Pt also reports that she is approximately 11-12 weeks . Pt states that she is also having blurred vision and light headed onset at 1230. Coronavirus screen: Client denies travel out of the [place] in the last 14 days. Ebola Screen: Patient denies travel to an Ebola-affected area in the 21 days before illness onset. No symptoms or risks identified at this time. Initial Sepsis Screen: Does the patient meet any 2 criteria? No. Patient's initial sepsis screen is negative. Does the patient have a suspected source of infection? No. Patient's initial sepsis screen is negative. Risk Assessment: Do you want to hurt yourself or someone else? Patient reports no desire to harm self or others. Onset of symptoms was March 31, 2024. 13:19 Method Of Arrival: Ambulatory cm10 13:19 Acuity: ARIANNA 3 cm10 Triage Assessment: 13:22 General: Appears in no apparent distress. uncomfortable, Behavior is calm, cooperative. cm10 Neuro: No deficits noted. Level of Consciousness is awake, alert, obeys commands, Oriented to person, place, time, situation. Respiratory: No deficits noted. Airway is patent Respiratory effort is even, unlabored, Respiratory pattern is regular, symmetrical. 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 - Infectious Disease History:: Denies. - Social history:: Smoking status: Patient denies any tobacco usage or history of. Screenin:24 [facility] ED Fall Risk Assessment (Adult) History of falling in the last 3 months, db including since admission No falls in past 3 months (0 pts) Confusion or Disorientation No (0 pts) Intoxicated or Sedated No (0 pts) Impaired Gait No (0 pts) Mobility Assist Device Used No (0 pt) Altered Elimination No (0 pt) Score/Fall Risk Level 0 - 2 = Low Risk Oriented to surroundings, Maintained a safe environment. Abuse screen: Denies threats or abuse. Denies injuries from another. Nutritional screening: No deficits noted. Tuberculosis screening: No symptoms or risk factors identified. Assessment: 15:30 Reassessment: Patient appears in no apparent distress at this time. Patient and/or db family updated on plan of care and expected duration. Pain level reassessed. Patient is alert, oriented x 3, equal unlabored respirations, skin warm/dry/pink. General: Appears in no apparent distress. comfortable, Behavior is calm, cooperative. Pain: Denies pain. Neuro: Level of Consciousness is awake, alert, obeys commands, Oriented to person, place, time, situation. Cardiovascular: No deficits noted. Rhythm is regular. Respiratory: Airway is patent Respiratory effort is even, unlabored, Respiratory pattern is regular, symmetrical, Breath sounds are clear. 16:10 Reassessment: Patient appears in no apparent distress at this time. Patient and/or db family updated on plan of care and expected duration. Pain level reassessed. Patient is alert, oriented x 3, equal unlabored respirations, skin warm/dry/pink. Patient states feeling better. Patient states symptoms have improved. Vital Signs: 13:19 BP 97 / 63; Pulse 62; Resp 19; Temp 97.8(O); Pulse Ox 100% on R/A; Weight 61.23 kg (R); cm10 Height 5 ft. 6 in. (R); Pain 0/10; 16:10 BP 102 / 55; Pulse 57; Resp 18; Temp 97.8(O); Pulse Ox 99% ; db 13:19 Body Mass Index 21.79 (61.23 kg, 167.64 cm) cm10 13:19 Pain Scale: Adult cm10 ED Course: 12:46 Patient arrived in ED. mr 13:21 Triage completed. cm10 13:22 Jace Stahl MD is Attending Physician. sp3 13:23 Arm band placed on Patient placed in an exam room, on a stretcher. cm10 13:56 CT Head Brain wo Cont In Process Unspecified. EDMS 13:57 CT Chest For PE Angio In Process Unspecified. EDMS 15:30 Inserted saline lock: 22 gauge in right antecubital area, using aseptic technique. db Blood collected. Flushed with 10 mL NS. 15:40 Melony Horne, RN is Primary Nurse. db 16:24 Patient has correct armband on for positive identification. Placed in gown. Bed in low db position. Call light in reach. Side rails up X 1. Provided Education on: DISCHARGE. Client placed on continuous cardiac and pulse oximetry monitoring. NIBP monitoring applied. court monitor on. Pulse ox on. NIBP on. Warm blanket given. 16:27 No provider procedures requiring assistance completed. IV discontinued, intact, db bleeding controlled, No redness/swelling at site. Administered Medications: 16:18 Drug: Promethazine IM 25 mg IM once Route: IM; Site: right deltoid; db 16:28 Follow up: Response: No adverse reaction db Medication: 16:27 VIS not applicable for this client. db Outcome: 15:43 Discharge ordered by . sp3 16:27 Discharged to home ambulatory, with family, db 16:27 Condition: stable 16:27 Discharge instructions given to patient, Instructed on discharge instructions, follow up and referral plans. Prescriptions given X 2, 16:29 Patient left the ED. db Signatures: Dispatcher [employer] EDOK Kristin Cohen, Reg Reg mr Jace Stahl MD MD sp3 Melony Horne, RN RN Cassia Ybarra RN RN cm10 Corrections: (The following items were deleted from the chart) :22 13:19 Chief complaint: Patient states: Shortness of breath onset 4 days ago. Pt states cm10 that the shortness of breath is worse with ambulation. Pt states that she was in the hospital last week. PT reports having a cough. Pt also reports that she is approximately 11-12 weeks . cm10
--- NOTE | 2024-03-31 15:44 | EDPHYS ---
Physician Documentation [facility] Name: Chapis Delgado Age: 38 yrs Sex: Female : 1985 Arrival Date: 03/31/2024 Time: 12:44 Bed 18 Private MD: ED Physician Jace Stahl HPI: 03/31 15:38 This 38 yrs old Female presents to ER via Ambulatory with complaints of Shortness Of sp3 Breath, Blurred Vision. 15:38 38-year-old female with no past medical history with recent URI seen here with negative sp3 swabs and discharged home. Daughter ended up testing positive for strep outpatient. Patient returns today for profound shortness of breath particularly on exertion, dizziness, general fatigue and weakness. Patient denies fever per se, sore throat, back pain, chest pain abdominal pain, rash, syncope, or any other signs or symptoms on ROS this time. She does endorse vomiting and nausea.. 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 - Infectious Disease History:: Denies. - Social history:: Smoking status: Patient denies any tobacco usage or history of. ROS: 15:39 Constitutional: Negative for fever, chills, and weight loss, Eyes: Negative for injury, sp3 pain, redness, and discharge, Neck: Negative for injury, pain, and swelling, Cardiovascular: Negative for chest pain, palpitations, and edema, Back: Negative for injury and pain, MS/Extremity: Negative for injury and deformity, Skin: Negative for injury, rash, and discoloration, Neuro: Negative for headache, weakness, numbness, tingling, and seizure, Psych: Negative for depression, anxiety, suicide ideation, homicidal ideation, and hallucinations, Allergy/Immunology: Negative for hives, rash, and allergies, Endocrine: Negative for neck swelling, polydipsia, polyuria, polyphagia, and marked weight changes, Hematologic/Lymphatic: Negative for swollen nodes, abnormal bleeding, and unusual bruising, 15:39 All other systems are negative, Exam: 15:39 Constitutional: This is a well developed, well nourished patient who is awake, alert, sp3 and in no acute distress. Head/Face: Normocephalic, atraumatic. Eyes: Pupils equal round and reactive to light, extra-ocular motions intact. Lids and lashes normal. Conjunctiva and sclera are non-icteric and not injected. Cornea within normal limits. Periorbital areas with no swelling, redness, or edema. ENT: Nares patent. No nasal discharge, no septal abnormalities noted. External auditory canals are clear. Oropharynx with no redness, swelling, or masses, exudates, or evidence of obstruction, uvula midline. Mucous membranes moist. Neck: Trachea midline, no thyromegaly or masses palpated, and no cervical lymphadenopathy. Supple, full range of motion without nuchal rigidity, or vertebral point tenderness. No Meningismus. Chest/axilla: Normal chest wall appearance and motion. Nontender with no deformity. No lesions are appreciated. Cardiovascular: Regular rate and rhythm with a normal S1 and S2. No gallops, murmurs, or rubs. Normal PMI, no JVD. No pulse deficits. Respiratory: Lungs have equal breath sounds bilaterally, clear to auscultation and percussion. No rales, rhonchi or wheezes noted. No increased work of breathing, no retractions or nasal flaring. Abdomen/GI: Soft, non-tender, with normal bowel sounds. No distension or tympany. No guarding or rebound. No evidence of tenderness throughout. Back: No spinal tenderness. No costovertebral tenderness. Full range of motion. Skin: Warm, dry with normal turgor. Normal color with no rashes, no lesions, and no evidence of cellulitis. MS/ Extremity: Pulses equal, no cyanosis. Neurovascular intact. Full, normal range of motion. Neuro: Awake and alert, GCS 15, oriented to person, place, time, and situation. Cranial nerves II-XII grossly intact. Motor strength 5/5 in all extremities. Sensory grossly intact. Cerebellar exam normal. Normal gait. Psych: Awake, alert, with orientation to person, place and time. Behavior, mood, and affect are within normal limits. Vital Signs: 13:19 BP 97 / 63; Pulse 62; Resp 19; Temp 97.8(O); Pulse Ox 100% on R/A; Weight 61.23 kg (R); cm10 Height 5 ft. 6 in. (R); Pain 0/10; 16:10 BP 102 / 55; Pulse 57; Resp 18; Temp 97.8(O); Pulse Ox 99% ; db 13:19 Body Mass Index 21.79 (61.23 kg, 167.64 cm) cm10 13:19 Pain Scale: Adult cm10 MDM: 13:24 Medical Screening Exam initiated sp3 15:40 Data reviewed: vital signs, nurses notes, old medical records, lab test result(s), sp3 radiologic studies. ED course: . 15:41 ED course: 38-year-old female with PMH above status post URI now with the above sp3 symptoms. Differential diagnosis includes pneumonia, PE, intracranial pathology, bronchitis, continue viral syndrome, electrolyte abnormality, dehydration, among others. Workup will include general laboratory values, CT scan of the chest PE protocol, CT scan of the head and general supportive care. Full workup is negative including CT scans. Given patient's exposure to daughter who tested positive for strep, we will go ahead and cover with Zithromax and also give Phenergan both IM here in the ED as well as p.o. for home given the fact that her ondansetron is not working. Patient will follow-up with PCP as needed. Vital signs normal on discharge.. 03/31 13:24 Order name: Basic Metabolic Panel; Complete Time: 14:34 sp3 03/31 13:24 Order name: CBC with Diff; Complete Time: 14:26 sp3 03/31 13:24 Order name: LFT's; Complete Time: 14:34 sp3 03/31 13:24 Order name: Magnesium; Complete Time: 14:34 sp3 03/31 13:24 Order name: NT PRO-BNP; Complete Time: 14:34 sp3 03/31 13:24 Order name: PT-INR; Complete Time: 14:26 sp3 03/31 13:24 Order name: Troponin HS; Complete Time: 14:34 sp3 03/31 13:24 Order name: CT Head Brain wo Cont; Complete Time: 14:26 sp3 03/31 13:24 Order name: CT Chest For PE Angio; Complete Time: 14:26 sp3 03/31 13:24 Order name: Cardiac monitoring; Complete Time: 16:18 sp3 03/31 13:24 Order name: IV Saline Lock; Complete Time: 15:40 sp3 03/31 13:24 Order name: Labs collected and sent; Complete Time: 15:40 sp3 03/31 13:24 Order name: O2 Per Protocol; Complete Time: 16:18 sp3 03/31 13:24 Order name: O2 Sat Monitoring; Complete Time: 16:18 sp3 Administered Medications: 16:18 Drug: Promethazine IM 25 mg IM once Route: IM; Site: right deltoid; db 16:28 Follow up: Response: No adverse reaction db Disposition Summary: 03/31/24 15:43 Discharge Ordered Notes: Location: Home sp3 Condition: Stable sp3 Diagnosis - Bronchitis, viral illness, strep exposure, nausea/vomiting sp3 Followup: sp3 - With: Private Physician - When: Upon discharge from the Emergency Department - Reason: Recheck today's complaints, Continuance of care Discharge Instructions: - Discharge Summary Sheet sp3 - Acute Bronchitis, Adult sp3 - Strep Throat, Adult sp3 Forms: - Medication Reconciliation Form sp3 - Antibiotic Education sp3 - Prescription Opioid Use sp3 - Patient Portal Instructions sp3 - Leadership Thank You Letter sp3 Prescriptions: - Zithromax Z-Daniel 250 mg Oral Tablet - take 1 tablet ORAL route as directed for 5 days Day 1 - take two (2) tablets sp3 one time. Day 2, 3, 4 , 5 take one (1) tablet once daily.; 6 tablet; Refills: 0, Product Selection Permitted - promethazine 25 mg Oral Tablet - take 1 tablet ORAL route every 6 hours As needed; 20 tablet; Refills: 0, sp3 Product Selection Permitted Signatures: Dispatcher [employer] EDMS Jace Stahl MD MD sp3 Melony Horne, RN RN db Cassia Veliz RN RN cm10 Corrections: (The following items were deleted from the chart) 13:25 13:25 BASIC METABOLIC PANEL+C.LAB.BRZ ordered. EDMS EDMS 13:25 13:25 CBC+H.LAB.BRZ ordered. EDMS EDMS 13:25 13:25 HEPATIC FUNCTION+C.LAB.BRZ ordered. EDMS EDMS 13:25 13:25 MAGNESIUM+C.LAB.BRZ ordered. EDMS EDMS 13:25 13:25 PROBNP+C.LAB.BRZ ordered. EDMS EDMS 13:25 13:25 PROTIME (+INR)+COAG.LAB.BRZ ordered. EDMS EDMS 13:25 13:25 Troponin High Sensitivity+C.LAB.BRZ ordered. EDMS EDMS 13:25 13:25 Head Brain Wo Cont+CT.RAD.BRZ ordered. EDMS EDMS 13:25 13:25 Chest For PE Angio+CT.RAD.BRZ ordered. EDMS EDMS 16:18 13:24 EKG - Nurse/Tech ordered. sp3 db
[2024-03-31] MEDS ORDERED: PROMETHAZINE INJ 25 MG/ML AMP ONE (16:06)
[2024-03-31 16:53] VITALS: TEMP 97.8
[2024-03-31 16:54] VITALS: BP 102/55; O2SAT 99
== END 2024-03-31 16:29 | disposition home or self-care (01) ==
LOC: ER 12:44
DX: O99.511 Diseases of the respiratory system complicating pregnancy, first trimester (principal); J40 Bronchitis, not specified as acute or chronic; Z20.818 Contact with and (suspected) exposure to other bacterial communicable diseases; Z3A.11 11 weeks gestation of pregnancy
CPT/HCPCS: 85025; 80048; 36415; 83735; 85610; 80076; 84484; 83880; 70450; 71275; Q9967; J2550; 96372; 99285

== ENCOUNTER 2024-07-02 18:10 | Emergency (ER) | payer OTHER ==
--- OUTSIDE RECORDS SUMMARY | 2024-07-02 18:13 | XMS REPORT | Continuity of Care Document ---
Author Name Unknown Address [address] [place] [address] [facility] Address [address] [place] [address] Care Team Providers Care Mold Designer Name Role Phone Pcp, Patient Does Not Have A Primary Care Physic mikey NITZA BYRNES Attending Clinician Unavailable NITZA BYRNES Attending Clinician Unavailable NAT MAYER Attending Clinician Unavailable RO CARBALLO Attending Clinician Un available Ultrasound, Ang-Mfm Attending Clinician Unavaila ble Ro Carballo MD Attending Clinician Doctor Unassigned, [place] Attending Clinician U steffen 2, [facility] Attending Clinician Unavailable Nitza Byrnes MD Attending Clinician [phone] Doctor Unassigned, [place] Attending Clinician U navailable 2, [facility] Attending Clinician Unavailable BLANCHE CHENG Attending Clinician Unavailable Blanche Cheng MD Attending Clinician [phone] RYLEE HAY Attending Clinician RYLEE Kincaid Attending Clinician BLANCHE Casarez Admitting Clinician Unavailable Blanche Cheng MD Admitting Clinician [phone] Payers Payer Name Policy Type Policy Number Effective Date Expirati on Date Source [facility] [id number] 2024 00:00:00 Problems Condition Name Condition Details Condition Category Status Onset Date Resolution Date Last Treatment Date Treating Clinician Comments Source Previous section Previous section Disease Active 2023-06 0-14 00:00: 00 [facility] High-risk in second trimester High-risk in second trimester Disease Active 2023-06 0-14 00:00: 00 [facility] Nausea and vomiting during prior to 22 weeks gestation Nausea and vomiting during prior to 22 weeks gestation Disease Active 2023-06 0-14 00:00: 00 [facility] History of anxiety History of anxiety Disease Active 2023-06 0-14 00:00: 00 [facility] AMA (advanced maternal age) multigravi da 35+, first trimester AMA (advanced maternal age) multigravi da 35+, first trimester Disease Active 3-12 00:00: 00 [facility] Anemia due to acute blood loss Anemia due to acute blood loss Disease Resolve d 08-23 00:00: 00 2024-03-10 00:00:00 2024-03-10 15:43:25 [facility] Incomplete miscarriag e Incomplete miscarriag e Disease Resolve d 08-23 00:00: 00 2023-09-06 00:00:00 2023-09-06 09:29:54 [facility] Missed Missed Disease Resolve d 08-13 00:00: 00 2023-09-06 00:00:00 2023-09-06 09:29:53 [facility] Allergies, Adverse Reactions, Alerts Allergy Name Allergy Type Status Severity Reaction(s) Onset Date Inactive Date Treating Clinician Comments Source NO KNOWN ALLERGIE S Drug Class Active [facility] Social History Social Habit Start Date Stop Date Quantity Comments Source ASSERTION 2024-01-24 00:00:00 [facility] Alcoholic beverage intake 2024-05-13 00:00:00 2024-05-13 00:00:00 Lifetime non-drinker (finding) [facility] Tobacco use and exposure 2024-03-10 00:00:00 2024-03-10 00:00:00 Smokeless tobacco non-user [facility] Alcohol intake 2023-09-06 00:00:00 2023-09-06 00:00:00 Lifetime non-drinker (finding) [facility] History of Social function 2023-08-15 00:00:00 2023-08-15 00:00:00 [facility] Sex assigned at 1985 00:00:00 1985 00:00:00 [facility] Smoking Status Start Date Stop Date Source Never smoked tobacco [facility] Medications Ordered Medication Name Filled Medication Name Start Date Stop Date Current Medication? Ordering Clinician Indication Dosage Frequency Signature (SIG) Comments Components Source vit no.124/iron /folic ( VITAMIN ORAL) 2023-06 15:42: 58 03-10 00:00 :00 No Take by mouth. [facility] pyridoxine, VITAMIN B-6, (VITAMIN B-6) 25 mg tablet 2023-06 00:00: 00 Yes [id number] 25mg Take 1 tablet by mouth every 6 (six) hours as needed for Nausea and Vomiting (N/V). [facility] doxylamine (UNISOM, DOXYLAMINE, ) 25 mg tablet 2023-06 00:00: 00 Yes [id number] 25mg Take 1 tablet by mouth at bedtime as needed for Nausea and Vomiting (N/V). [facility] proMETHazin e 25 mg tablet 2023-06 00:00: 00 Yes [id number] 25mg Take 1 tablet by mouth every 4 (four) hours as needed for Nausea and Vomiting (N/V). [facility] rizatriptan 10 mg tablet 09-05 08:43: 24 Yes TAKE 1 TABLET BY ORAL ROUTE NEEDED, FOR ABORTIVE MIGRAINE. [facility] clonazePAM 0.5 mg tablet 09-05 08:43: 13 Yes .5mg Take 1 tablet by mouth in the morning and 1 tablet in the evening. [facility] vit no.124/iron /folic ( VITAMIN ORAL) 09-05 08:42: 45 Yes Take by mouth. [facility] ferrous sulfate (IRON, FERROUS SULFATE,) 325 mg (65 mg iron) tablet 09-05 00:00: 00 03-10 00:00 :00 No [id number] 325mg Take 1 tablet by mouth in the morning and 1 tablet in the evening. [facility] bisacodyL (DULCOLAX, BISACODYL,) 5 mg EC tablet 09-05 00:00: 00 03-10 00:00 :00 No [id number] 5mg Take 1 tablet by mouth once daily as needed for Constipati on. [facility] escitalopra m oxalate 20 mg tablet 08-26 00:00: 00 03-17 00:00 :00 No TAKE 1 TABLET BY MOUTH EVERY DAY FOR 30 DAYS [facility] ibuprofen (IBU) tablet 800 mg 08-23 16:56: 00 08-23 16:59 :00 No 800mg 800 mg, Oral, ONCE, 1 dose, On Sun08/24/23 at 1200, Routine [facility] lactated ringers IV infusion 1,000 mL 08-23 14:15: 00 Yes 1000mL at 75 mL/hr, 1,000 mL, IV Infusion, CONTINUOUS , Starting on Sun08/24/23 at 0915, Until Discontinu ed, Routine, PACU [facility] HYDROcodone -acetaminop hen (NORCO 5) 5-325 mg tablet 1 tablet 08-23 14:15: 00 08-23 14:21 :00 No 1{tbl} 1 tablet, Oral, ONCE, 1 dose, On Sun08/24/23 at 0915, Routine, PACU [facility] vit no.124/iron /folic ( VITAMIN ORAL) 08-23 12:35: 36 Yes Take by mouth. [facility] doxycycline hyclate (Vibramycin ) capsule 100 mg 08-23 10:30: 00 08-23 10:24 :00 No 100mg 100 mg, Oral, ONCE, 1 dose, On Sun08/24/23 at 0530, MEREDITH
Re ason for Anti-Infec tive: Empiric Non-Surgic al Prophylaxi s
Durat ion of therapy: Once (ED) [facility] miSOPROStoL (CYTOTEC) tablet 800 mcg 08-23 10:15: 00 08-23 10:03 :00 No 800ug 800 mcg, Vaginal, ONCE, 1 dose, On Sun08/24/23 at 0515, Routine [facility] oxytocin (PITOCIN) 30 units in NS 500 mL IV infusion 08-23 10:00: 00 Yes 125mL/h 125 mL/hr, IV Infusion, CONTINUOUS , Starting on Sun08/24/23 at 0500 [facility] FENTanyl PF (SUBLIMAZE (PF)) injection 100 mcg 08-23 09:49: 00 08-23 09:50 :00 No 100ug 100 mcg, Slow IV Push, ONCE, 1 dose, On Sun08/24/23 at 0500, Routine [facility] D5W-LR IV infusion 1,000 mL 08-23 09:00: 00 Yes 1000mL at 125 mL/hr, IV Infusion, CONTINUOUS , Starting on Sun08/24/23 at 0400, Until Discontinu ed, Routine [facility] HYDROcodone -acetaminop hen 5-325 mg tablet 08-23 00:00: 00 03-17 00:00 :00 No 4647 1{tbl} Take 1 tablet by mouth every 6 (six) hours as needed for Pain (scale 7-10). Indication s: acute pain [facility] ibuprofen (IBU) tablet 600 mg 08-22 20:30: 00 08-22 19:42 :00 No [id number] 600mg [facility] miSOPROStoL (CYTOTEC) tablet 800 mcg 08-22 20:15: 00 08-22 19:24 :00 No [id number] 800ug [facility] ibuprofen 600 mg tablet 08-22 00:00: 00 03-10 00:00 :00 No [id number] 600mg Take 1 tablet by mouth every 6 (six) hours as needed for Pain (scale 1-3) or Pain (scale 4-6). [facility] proMETHazin e 25 mg tablet 08-22 00:00: 00 03-10 00:00 :00 No [id number] 25mg Take 1 tablet by mouth every 4 (four) hours as needed for Nausea and Vomiting (N/V). [facility] HYDROcodone -acetaminop hen 5-325 mg tablet 08-22 00:00: 00 08-23 00:00 :00 No 4647 1{tbl} Take 1 tablet by mouth every 6 (six) hours as needed for Pain (scale 7-10). Indication s: acute pain [facility] HYDROcodone -acetaminop hen 5-325 mg tablet 18 00:00: 00 08-22 00:00 :00 No 4647 1{tbl} Take 1 tablet by mouth every 6 (six) hours as needed for Pain (scale 7-10) for up to 7 days. Indication s: acute pain [facility] miSOPROStoL (CYTOTEC) tablet 800 mcg 14 01:00: 00 08-15 00:59 :00 No [id number] 800ug [facility] ibuprofen 600 mg tablet 08-14 00:00: 00 08-22 00:00 :00 No [id number] 600mg Take 1 tablet by mouth every 6 (six) hours as needed for Pain (scale 1-3) or Pain (scale 4-6). [facility] proMETHazin e 25 mg tablet 3-13 00:00: 00 08-22 00:00 :00 No [id number] 25mg Take 1 tablet by mouth every 4 (four) hours as needed for Nausea and Vomiting (N/V). [facility] HYDROcodone -acetaminop hen 5-325 mg tablet 3-13 00:00: 00 08-22 04:59 :00 No 4647 1{tbl} Take 1 tablet by mouth every 6 (six) hours as needed for Pain (scale 7-10) for up to 7 days. Indication s: acute pain [facility] vit no.124/iron /folic ( VITAMIN ORAL) 12 10:01: 18 Yes Take by mouth. [facility] Vital Signs Vital Name Observation Time Observation Value Comments Vlad newberry Systolic blood pressure 2024-05-12 15:32:00 107 mm[Hg] [facility] Diastolic blood pressure 2024-05-12 15:32:00 69 mm[Hg] [facility] Heart rate 2024-05-12 15:32:00 75 /min Unive [facility] Respiratory rate 2024-05-12 15:32:00 18 /min [facility] Body height 2024-05-12 15:32:00 167.6 cm [facility] Body weight 2024-05-12 15:32:00 63.05 kg [facility] BMI 2024-05-12 15:32:00 22.44 kg/m2 [facility] Systolic blood pressure 2024-03-17 19:33:00 106 mm[Hg] [facility] Diastolic blood pressure 2024-03-17 19:33:00 67 mm[Hg] [facility] Heart rate 2024-03-17 19:33:00 67 /min Unive [facility] Body temperature 2024-03-17 19:33:00 36.61 Anastasia [facility] Body height 2024-03-17 19:33:00 167.6 cm [facility] Body weight 2024-03-17 19:33:00 60.419 kg [facility] BMI 2024-03-17 19:33:00 21.50 kg/m2 [facility] Systolic blood pressure 2024-03-10 20:05:00 111 mm[Hg] [facility] Diastolic blood pressure 2024-03-10 20:05:00 75 mm[Hg] [facility] Heart rate 2024-03-10 20:05:00 68 /min Un[facility] Body temperature 2024-03-10 20:05:00 36.33 Anastasia [facility] Body height 2024-03-10 20:05:00 167.6 cm [facility] Body weight 2024-03-10 20:05:00 60.782 kg [facility] BMI 2024-03-10 20:05:00 21.63 kg/m2 [facility] Systolic blood pressure 2023-09-06 13:42:00 120 mm[Hg] [facility] Diastolic blood pressure 2023-09-06 13:42:00 67 mm[Hg] [facility] Heart rate 2023-09-06 13:42:00 75 /min [facility] temperature 2023-09-06 13:42:00 36.5 Anastasia [facility] Body height 2023-09-06 13:42:00 167.6 cm [facility] Body weight 2023-09-06 13:42:00 64.683 kg Univ [facility] BMI 2023-09-06 13:42:00 23.02 kg/m2 [facility] Systolic blood pressure 2023-08-24 15:10:00 115 mm[Hg] [facility] Diastolic blood pressure 2023-08-24 15:10:00 53 mm[Hg] [facility] Heart rate 2023-08-24 15:10:00 86 /min [facility] Oxygen saturation in Arterial blood by Pulse oximetry 2023-08-24 15:10:00 100 /min [facility] Respiratory rate 2023-08-24 14:29:00 18 /min [facility] Body temperature 2023-08-24 13:47:00 36.44 Anastasia [facility] Body height 2023-08-24 08:34:00 167.6 cm [facility] Body weight 2023-08-24 08:34:00 63.957 kg Univ [facility] BMI 2023-08-24 08:34:00 22.76 kg/m2 [facility] Body height 2023-08-23 18:49:00 167.6 cm [facility] Body weight 2023-08-23 18:49:00 63.957 kg Univ [facility] BMI 2023-08-23 18:49:00 22.76 kg/m2 [facility] Systolic blood pressure 2023-08-23 18:49:00 92 mm[Hg] [facility] Diastolic blood pressure 2023-08-23 18:49:00 58 mm[Hg] [facility] Heart rate 2023-08-23 18:49:00 71 /min [facility] Respiratory rate 2023-08-23 18:49:00 18 /min [facility] Systolic blood pressure 2023-08-15 20:43:00 105 mm[Hg] [facility] Diastolic blood pressure 2023-08-15 20:43:00 59 mm[Hg] [facility] Heart rate 2023-08-15 20:42:00 63 /min Unive [facility] Body temperature 2023-08-15 20:42:00 36.5 Anastasia [facility] Respiratory rate 2023-08-15 20:42:00 18 /min [facility] Body height 2023-08-15 20:42:00 167.6 cm Univ [facility] Body weight 2023-08-15 20:42:00 64.139 kg Univ [facility] BMI 2023-08-15 20:42:00 22.82 kg/m2 [facility] Systolic blood pressure 2023-08-14 14:59:00 98 mm[Hg] [facility] Diastolic blood pressure 2023-08-14 14:59:00 63 mm[Hg] [facility] Heart rate 2023-08-14 14:59:00 118 /min [facility] Respiratory rate 2023-08-14 14:59:00 18 /min [facility] Body height 2023-08-14 14:59:00 167.6 cm Univ [facility] Body weight 2023-08-14 14:59:00 64.864 kg Univ [facility] BMI 2023-08-14 14:59:00 23.08 kg/m2 [facility] Procedures Procedure Date / Time Performed Performing Clinician Source SECOND AND THIRD TRIMESTER ULTRASOUND 2024-05-29 16:09:00 Nitza Byrnes [facility] SECOND AND THIRD TRIMESTER ULTRASOUND 2024-05-29 16:05:00 Nitza Byrnes [facility] POCT URINALYSIS W/O SPECIFIC GRAVITY 2024-05-12 00:00:00 Nitza Byrnes [facility] OB TRANSVAGINAL 2024-03-10 21:57:55 Nitza Byrnes [facility] POCT TEST 2024-03-10 00:00:00 Nitza Byrnes [facility] POCT TEST 2023-09-06 00:00:00 Nitza Byrnes [facility] FIRST TRIMESTER LESS THAN 14 WEEKS WITH TRANSVAGINAL 2023-08-24 11:39:00 Adum, Blanche Chiang [facility] CBC WITH DIFF 2023-08-24 10:30:00 Adum, Blanche Chiang [facility] OB TRANSVAGINAL 2023-08-23 19:24:35 Nitza Byrnes [facility] PELVIS COMPLETE WITH TRANSVAGINAL 2023-08-15 16:15:14 Rylee Hay [facility] OB TRANSVAGINAL 2023-08-14 15:30:01 [facility] Start Date/Time End Date/Time Encounter Type Admission Type Attending [facility] Care Facility Care Department Encounter ID Source 2024-07-07 10:45:00 2024-07-07 10:45:00 Outpatient R SONIYANITZA NITZA BYRNES [facility] [id number] [facility] 2024-06-10 09:45:00 2024-06-10 09:45:00 Outpatient R NAT MAYER [facility] [id number] [facility] 2024-05-29 08:45:00 2024-05-29 09:58:59 Outpatient P RO MOFFETT [facility] [id number] [facility] 2024-05-29 08:45:00 2024-05-29 09:58:59 Metal Riveter Visit Ultrasound, Ro Anguiano [facility] 1..840.114 350.1.13.10 4.2.7.2.686 [id number] [facility] 2024-04-16 00:00:00 2024-05-17 18:19:25 Patient Secure Msg Doctor Unassigned, [place] Doctor Unassigned, [place] [facility] 1..840.114 350.1.13.10 4.2.7.2.686 [id number] [facility] 2024-05-12 10:15:00 2024-05-12 10:27:20 Metal Riveter Visit 2, [facility] Nitza Byrnes 2, Adc Lab [facility] 1..840.114 350.1.13.10 4.2.7.2.686 [id number] [facility] 2024-05-12 09:45:00 2024-05-12 10:05:53 Outpatient R NITZA BYRNES VIEN [facility] [id number] [facility] 2024-05-12 09:45:00 2024-05-12 10:05:53 Routine Visit Nitza Byrnes [facility] 1..840.114 350.1.13.10 4.2.7.2.686 [id number] [facility] 2024-04-15 16:15:00 2024-04-15 16:15:00 Outpatient NAT NUNES [facility] [id number] [facility] 2024-04-15 09:30:00 2024-04-15 09:30:00 Outpatient NAT NUNES [facility] [id number] [facility] 2024-03-31 00:00:00 2024-03-31 13:55:47 Telephone Nitza Byrnes [facility] 1.2.840.114 350.1.13.10 4.2.7.2.686 [id number] [facility] 2024-03-24 09:30:00 2024-03-24 09:45:00 Metal Riveter Visit 2, [facility] Nitza Byrnes 2, Adc Lab [facility] 1.2.840.114 350.1.13.10 4.2.7.2.686 [id number] [facility] 2024-03-24 09:30:00 2024-03-24 09:30:00 Outpatient R NITZA BYRNES NITZA [facility] [id number] [facility] 2024-03-17 14:15:00 2024-03-17 14:55:18 [id number] 2024-03-17 14:15:00 2024-03-17 14:55:18 Initial Visit Nitza Byrnes [facility] 1.2.840.114 350.1.13.10 4.2.7.2.686 [id number] [facility] 2024-03-10 15:00:00 2024-03-10 15:42:59 Outpatient R BRYAN [facility]ESJUAN [facility] [id number] [facility] 2024-03-10 15:00:00 2024-03-10 15:42:59 Office Visit Nitza Byrnes [facility] 1.2.840.114 350.1.13.10 4.2.7.2.686 [id number] [facility] 2023-09-07 00:00:00 2023-10-13 18:13:43 Patient Secure Msg Doctor Unassigned, [place] [facility] 1.840.114 350.1.13.10 4.2.7.2.686 [id number] [facility] 2023-09-06 10:30:00 2023-09-06 10:45:00 Metal Riveter Visit 2, Adc Lab Nitza Byrnes [facility] 1.84.114 350.1.13.10 4.2.7.2.686 [id number] [facility] 2023-09-06 09:00:00 2023-09-06 09:05:55 Outpatient R NITZA BYRNES [facility] [id number] [facility] 2023-09-06 09:00:00 2023-09-06 09:05:55 Office Visit Nitza Byrnes [facility] 1.84.114 350.1.13.10 4.2.7.2.686 [id number] [facility] 2023-08-30 13:45:00 2023-08-30 13:45:00 Outpatient R NITZA BYRNES [facility] [id number] [facility] 2023-08-24 02:18:00 2023-08-24 12:30:00 Outpatient P FABIENNEBIBBLANCHE [facility] [id number] [facility] 2023-08-24 02:18:00 2023-08-24 12:30:00 Hospital Encounter Blanche Cheng Mariia [facility] 1.84.114 350.1.13.10 4.2.7.2.686 [id number] [facility] 2023-08-24 00:00:00 2023-08-24 00:00:00 Telephone Nitza Byrnes [facility] 1.840.114 350.1.13.10 4.2.7.2.686 [id number] [facility] 2023-08-23 15:30:00 2023-08-23 15:45:00 Metal Riveter Visit 2, Adc Lab Nitza Byrnes [facility] 1.2.840.114 350.1.13.10 4.2.7.2.686 [id number] [facility] 2023-08-23 13:45:00 2023-08-23 14:41:08 Outpatient R NITZA BYRNES [facility] [id number] [facility] 2023-08-23 13:45:00 2023-08-23 14:41:08 Office Visit Nitza Byrnes [facility] 1.2.840.114 350.1.13.10 4.2.7.2.686 [id number] [facility] 2023-08-23 00:00:00 2023-08-23 00:00:00 Prep For Surgery Nitza Byrnes [facility] 1.2.840.114 350.1.13.10 4.2.7.2.686 [id number] [facility] 2023-08-20 00:00:00 2023-08-20 00:00:00 Case Management Nitza Byrnes [facility] 1.2.840.114 350.1.13.10 4.2.7.2.686 [id number] [facility] 2023-08-18 00:00:00 2023-08-18 00:00:00 Refill Nitza Byrnes [facility] 1.2.840.114 350.1.13.10 4.2.7.2.686 [id number] [facility] 2023-08-17 00:00:00 2023-08-17 00:00:00 Outpatient RYLEE MACHADO-LISETTE S, RYLEE [facility] [id number] [facility] 2023-08-15 10:10:52 2023-08-15 23:59:00 Outpatient R VELIA Chu, RYLEE BONITA-LISETTE S, RYLEE [facility] [id number] [facility] 2023-08-15 10:10:52 2023-08-15 23:59:00 Hospital Encounter Rylee Florian [facility] 1.2.840.114 350.1.13.10 4.2.7.2.686 [id number] [facility] 2023-08-15 15:30:00 2023-08-15 16:45:43 Routine Visit Nitza Byrnes [facility] 1.2.840.114 350.1.13.10 4.2.7.2.686 [id number] [facility] 2023-08-15 00:00:00 2023-08-15 00:00:00 Telephone Monique Floriansol [facility] 1.2.840.114 350.1.13.10 4.2.7.2.686 [id number] [facility] 2023-08-14 10:00:00 2023-08-14 10:32:54 Outpatient R VELIA Chu, RYLEE VELIA SMONIQUERYLEE [facility] [id number] [facility] 2023-08-14 10:00:00 2023-08-14 10:32:54 Initial Visit Rylee Florian [facility] 1.2.840.114 350.1.13.10 4.2.7.2.686 [id number] [facility] Results Test Description Test Time Test Comments Results Result Co mments Source [facility] Clit2320-22-11 20:20:00* Test Item Value Reference Range Interpretation Comme nts POCT PREG (test code = 1605) Positive On board controls acceptable with C Line (test code = 3574) Yes POCT PREG LOT # (test code = 3575) POCT PREG TEST DATE ( test code = 3576) [facility] [id number] 13:44:00* Test Item Value Reference Range Interpretation Comme nts POCT PREG (test code = 1605) Positive On board controls acceptable with C Line (test code = 3574) Yes POCT PREG LOT # (test code = 3575) POCT PREG TEST DATE ( test code = 3576) [facility] [id number] 13:44:00* Test Item Value Reference Range Interpretation Comme nts POCT PREG (test code = 1605) Positive On board controls acceptable with C Line (test code = 3574) Yes POCT PREG LOT # (test code = 3575) POCT PREG TEST DATE ( test code = 3576) [facility] with [id number] 13:30:51* Test Item Value Reference Range Interpretation [...] 34.1 g/dL 31.6-35.1 RDW-SD (test code = 01981-0) 42.6 fL 39.0-49.9 RDW-CV (test code = 788-0) 12.8 % 12.0-15.5 PLT (test code = 777-3) 142 166-358 L MPV (test code = 53008-2) 10.3 fL 9.5-12.9 NRBC/100 WBC (test code = 4727706331) 0.0 0.0-10.0 NRBC x10^3 (test code = 3762758435) See_Comment [Automated messa ge] The system which generated this result transmitted reference range: 10*3/?L. The reference range was not used to interpret this result as normal/abnormal. GRAN MAT (NEUT) % (test code = 770-8) 72.0 % IMM GRAN % (test code = 3203565750) 0.40 % LYMPH % (test code = 736-9) 21.2 % MONO % (test code = 5905-5) 5.0 % EOS % (test code = 713-8) 0.9 % BASO % (test code = 706-2) 0.5 % GRAN MAT x10^3(ANC) (test code = 4799547012) 5.47 10*3/uL 1.88-7.09 IMM GRAN x10^3 (test code = 4597087797) 0.03 10*3/uL 0.00-0.06 LYMPH x10^3 (test code = 731-0) 1.61 10*3/uL 1.32-3.29 MONO x10^3 (test code = 742-7) 0.38 10*3/uL 0.33-0.92 EOS x10^3 (test code = 711-2) 0.07 10*3/uL 0.03-0.39 BASO x10^3 (test code = 704-7) 0.04 10*3/uL 0.01-0.07 Lab Interpretation (test code = 69035-3) Abnormal [facility] FIRST TRIMESTER LESS THAN 14 WEEKS WITH [id number] 12:34:50US FIRST TRIMESTER LESS THAN 14 WEEKS WITH TRANSVAGINAL Ordering Provider: BLANCHE Chiang ADUM HISTORY: ?check for retained products COMPARISON: Ultrasound 08/15/2023 Technical quality: adequate TECHNIQUE: Sonographic evaluation of the uterus and bilateral adnexa. Cineclips were obtained for evaluation of retained intrauterine pregnancyproducts. FINDINGS/[facility] PELVIS COMPLETE WITH TRANSVAGINAL 2023-08-15 16:25:37HISTORY: ?11 [...] 10 week size intrauterine without cardiacactivity, confirming demise.[facility] History and Physical Notes Date/Time Note Provider Source 2023-08-24 05:14:12 Images from the original note were not included. CHIEF RECORDIST ADMISSION H&P NOTE Date of Service: 08/24/2023 Chief Complaint: Miscarriage Vaginal bleeding History Destiny Delgado is a 37 year old female who is undergoing a medical management for missed at 10wks gestation. She received 2nd dose of Cytotec on 08/22 and presented to Er with profuse bleeding and cramps. US at showed RPOC but the provider reported that unable to visualize her cervix and initiated transfer to us. She became hypotensive prior to transfuse and received 2 units of PRBCs. At this stage, they reported removing clots from the vagina and visualized POC at the cervix - but were unable to most of it. Vaginal packing was placed and she was transferred at [facility]. She was also give tranexamic acid and [...] proceed with a D&C Blanche Cheng MD T [facility]
[2024-07-02 18:58] LABS: SARS-CoV-2 Antigen CONTROL BLUE LINE VIS/BG OK; SARS-CoV-2 Antigen Rapid Res Negative (Negative)
[2024-07-02] MEDS ORDERED: ACETAMINOPHEN 325 MG TABLET ONE (19:10)
--- NOTE | 2024-07-02 20:07 | EDPHYS ---
Physician Documentation [facility] Name: Chapis Delgado Age: 38 yrs Sex: Female : 1985 Arrival Date: 07/02/2024 Time: 18:10 Bed 18 Private MD: ED Physician aMrc Luevano HPI: 07/02 18:39 This 38 yrs old Female presents to ER via Ambulatory with complaints of 24 dr5 wks , Flu Symptoms. 18:39 Onset: The symptoms/episode began/occurred last night. Patient is a 38-year-old female dr5 with no past medical history coming in with fever, cough, congestion that started last night. Patient reports she is approximately 24 weeks . Patient is G4, . Patient reports she took 10 mL of NyQuil about an hour prior to arrival. Patient denies vaginal bleeding, abdominal pain, nausea, vomiting, diarrhea. Patient reports she is feeling the baby move and denies any cramping.. 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 - Infectious Disease History:: Denies. - Social history:: Smoking status: Patient denies any tobacco usage or history of. ROS: 18:39 Constitutional: as per hpi dr5 Exam: 18:39 Constitutional: This is a well developed, well nourished patient who is awake, alert, dr5 and in no acute distress. Head/Face: Normocephalic, atraumatic. Eyes: Pupils equal round and reactive to light, extra-ocular motions intact. Lids and lashes normal. Conjunctiva and sclera are non-icteric and not injected. Cornea within normal limits. Periorbital areas with no swelling, redness, or edema. Neck: Trachea midline, no thyromegaly or masses palpated, and no cervical lymphadenopathy. Supple, full range of motion without nuchal rigidity, or vertebral point tenderness. No Meningismus. Chest/axilla: Normal chest wall appearance and motion. Nontender with no deformity. No lesions are appreciated. Cardiovascular: Regular rate and rhythm with a normal S1 and S2. Normal PMI, no JVD. No pulse deficits. Respiratory: Lungs have equal breath sounds bilaterally, clear to auscultation. No rales, rhonchi or wheezes noted. No increased work of breathing, no retractions or nasal flaring. Back: No spinal tenderness. No costovertebral tenderness. Full range of motion. Skin: Warm, dry with normal turgor. Normal color with no rashes, no lesions, and no evidence of cellulitis. MS/ Extremity: Pulses equal, no cyanosis. Neurovascular intact. Full, normal range of motion. Neuro: Awake and alert, GCS 15, oriented to person, place, time, and situation. Cranial nerves II-XII grossly intact. Motor strength 5/5 in all extremities. Sensory grossly intact. Cerebellar exam normal. Normal gait. Vital Signs: 18:20 BP 103 / 54; Pulse 102; Resp 18; Temp 99.4(O); Pulse Ox 95% ; Weight 64.86 kg; Height 5 db ft. 6 in. ; 19:35 Temp 98.2(O); rg5 20:11 BP 110 / 60; Pulse 99; Resp 18; Pulse Ox 96% on R/A; Pain 0/10; rg5 18:20 Body Mass Index 23.08 (64.86 kg, 167.64 cm) db 20:11 Pain Scale: Adult rg5 MDM: 18:16 Medical Screening Exam initiated dr5 07/03 01:07 Differential diagnosis: viral Infection, bacterial infection, URI. Data reviewed: vital dr5 signs, nurses notes. Care significantly affected by the following Social Determinants of Health: Poor access to healthcare and/or lack of insurance, Poor access to transportation, Problems related to employment. Counseling: I had a detailed discussion with the patient and/or guardian regarding the historical points, exam findings, and any diagnostic results supporting the discharge/admit diagnosis, the presence of at least one elevated blood pressure reading (>120/80) during this emergency department visit, the need for outpatient follow up, for definitive care, a family practitioner, an OB/Gyne specialist, to return to the emergency department if symptoms worsen or persist or if there are any questions or concerns that arise at home. ED course: Given patient's daughter has recently had influenza will cover for flu with Tamiflu. Flu may be falsely negative given early disease process. Recommended taking Tylenol every 6 hours as needed for fever. Increase hydration. Follow-up with primary care doctor and OB this week. Patient is aware of medications that are safe to take in for URI symptoms.. 07/02 18:16 Order name: SARS RAPID; Complete Time: 19:03 dr5 07/02 18:16 Order name: Influenza Screen (a \T\ B); Complete Time: 19:03 dr5 Administered Medications: 07/02 19:12 Drug: Acetaminophen PO 650 mg PO once Route: PO; jb4 19:35 Follow up: Response: No adverse reaction; Temperature is decreased rg5 Disposition: 20:43 Co-signature as Attending Physician, Marc Luevano MD I reviewed the patient's care rt provided by the Advanced Practice Provider and agree with the diagnosis and treatment plan. Disposition Summary: 07/02/24 20:06 Discharge Ordered Notes: Location: Home dr5 Condition: Stable dr5 Diagnosis - Acute upper respiratory infection, unspecified dr5 Followup: dr5 - With: Emergency Department - When: As needed - Reason: Worsening of condition Followup: dr5 - With: Private Physician - When: 1 - 2 days - Reason: Recheck today's complaints, Continuance of care, Re-evaluation by your physician Discharge Instructions: - Discharge Summary Sheet dr5 - Upper Respiratory Infection, Adult, [id number] dr5 Forms: - Medication Reconciliation Form dr5 - Patient Portal Instructions dr5 - Leadership Thank You Letter dr5 Prescriptions: - Tamiflu 75 mg Oral capsule - take 1 tablet ORAL route every 12 hours for 5 days; 10 tablet; Refills: 0, dr5 Product Selection Permitted Signatures: Dispatcher [employer] [facility] Van Greene RN RN jb4 Melony Horne RN RN db [place], Ryan, MD MD rt Anthony Marcano, CHAIN SAW MECHANIC-C CHAIN SAW MECHANIC-Cdr5 Cristino Lauren RN rg5 Corrections: (The following items were deleted from the chart) 18:35 18:16 Chest Pa And Lat (2 Views)+RAD.RAD.BRZ ordered. [facility] EDAZ 18:40 18:39 Patient is a 38-year-old female with no past medical history coming in with dr5 fever, cough, congestion that started last night. Patient reports she is approximately 24 weeks . Patient is G4, . Patient reports she took 10 mL of NyQuil about an hour prior to arrival.. dr5
--- NOTE | 2024-07-02 20:07 | ER ---
Nurse's Notes [facility] Name: Chapis Delgado Age: 38 yrs Sex: Female : 1985 Arrival Date: 07/02/2024 Time: 18:10 Bed 18 Private MD: Diagnosis: Acute upper respiratory infection, unspecified Presentation: 07/02 18:20 Chief complaint: Patient states: PATIENT FEELS CONFUSED AND WEAK FEELING CHILLS WITH db BILATERAL EAR PAIN. STATES IS 6 MONTHS . [facility] HAS N/V STARTED THIS AM. TOOK NYQUIL. Coronavirus screen: Client denies travel out of the [place] in the last 14 days. At this time, the client does not indicate any symptoms associated with coronavirus-19. Ebola Screen: Patient negative for fever greater than or equal to 101.5 degrees Fahrenheit, and additional compatible Ebola Virus Disease symptoms Patient denies exposure to infectious person. Patient denies travel to an Ebola-affected area in the 21 days before illness onset. No symptoms or risks identified at this time. Initial Sepsis Screen: Does the patient meet any 2 criteria? No. Patient's initial sepsis screen is negative. Does the patient have a suspected source of infection? No. Patient's initial sepsis screen is negative. Risk Assessment: Do you want to hurt yourself or someone else? Patient reports no desire to harm self or others. Onset of symptoms was July 02, 2024. 18:20 Method Of Arrival: Ambulatory db 18:20 Acuity: ARIANNA 3 db Triage Assessment: 18:22 General: Appears in no apparent distress. comfortable, Behavior is calm, cooperative. db Pain: Complains of pain in BODY ACHES. Neuro: Level of Consciousness is awake, alert, obeys commands, Oriented to person, place, time, situation. Respiratory: Airway is patent Respiratory effort is even, unlabored, Respiratory pattern is regular, symmetrical. GI: Reports nausea, vomiting. 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 - Infectious Disease History:: Denies. - Social history:: Smoking status: Patient denies any tobacco usage or history of. Screenin:38 [facility] ED Fall Risk Assessment (Adult) History of falling in the last 3 months, rg5 including since admission No falls in past 3 months (0 pts) Confusion or Disorientation No (0 pts) Intoxicated or Sedated No (0 pts) Impaired Gait No (0 pts) Mobility Assist Device Used No (0 pt) Altered Elimination No (0 pt) Score/Fall Risk Level 0 - 2 = Low Risk Oriented to surroundings, Maintained a safe environment, Hourly rounding (assess needs \T\ fall precautionary measures) done. Abuse screen: Denies threats or abuse. Nutritional screening: No deficits noted. Tuberculosis screening: No symptoms or risk factors identified. Assessment: 19:30 General: Appears in no apparent distress. comfortable, Behavior is calm, cooperative, rg5 appropriate for age. 19:30 General: Reports chills for feeling ill for. Pain: Denies pain. Neuro: Level of rg5 Consciousness is awake, alert, Oriented to person, place, time, situation. Cardiovascular: Denies chest pain, Patient's skin is warm and dry. Respiratory: Airway is patent Respiratory effort is even, unlabored, Breath sounds are clear. GI: No signs and/or symptoms were reported involving the gastrointestinal system. Musculoskeletal: Circulation, motion, and sensation intact. Range of motion: intact in all extremities. Vital Signs: 18:20 BP 103 / 54; Pulse 102; Resp 18; Temp 99.4(O); Pulse Ox 95% ; Weight 64.86 kg; Height 5 db ft. 6 in. ; 19:35 Temp 98.2(O); rg5 20:11 BP 110 / 60; Pulse 99; Resp 18; Pulse Ox 96% on R/A; Pain 0/10; rg5 18:20 Body Mass Index 23.08 (64.86 kg, 167.64 cm) db 20:11 Pain Scale: Adult rg5 ED Course: 18:12 Patient arrived in ED. mr 18:14 Anthony Marcano FNP-C is PHCP. dr5 18:14 Marc Luevano MD is Attending Physician. dr5 18:22 Triage completed. db 18:22 Arm band placed on. db 18:38 Influenza Screen (a \T\ B) Sent. db 18:38 SARS RAPID Sent. db 19:22 Cristino Lauren, RN is Primary Nurse. rg5 19:38 Patient has correct armband on for positive identification. Bed in low position. rg5 19:38 No provider procedures requiring assistance completed. rg5 20:13 Provided Education on: post er care. rg5 20:13 Patient did not have IV access during this emergency room visit. rg5 Administered Medications: 19:12 Drug: Acetaminophen PO 650 mg PO once Route: PO; jb4 19:35 Follow up: Response: No adverse reaction; Temperature is decreased rg5 Medication: 20:13 VIS not applicable for this client. rg5 Outcome: 20:06 Discharge ordered by MD. dr5 20:13 Discharged to home ambulatory, rg5 20:13 Condition: stable 20:13 Discharge instructions given to patient, Instructed on discharge instructions, follow up and referral plans. Demonstrated understanding of instructions, follow-up care, medications, Prescriptions given X 1, 20:14 Patient left the ED. rg5 Signatures: Kristin Cohen, Reg Reg mr Van Greene, RN RN jb4 Melony Horne, SHELDON RN db Cristino Lauren, RN RN rg5 Anthony Marcano, LIGHTING FIXTURE INSTALLER-C LIGHTING FIXTURE INSTALLER-Cdr5
[2024-07-03 05:38] VITALS: TEMP 98.2
[2024-07-03 05:39] VITALS: BP 110/60; O2SAT 96
== END 2024-07-02 20:14 | disposition home or self-care (01) ==
LOC: ER 18:10
DX: O99.512 Diseases of the respiratory system complicating pregnancy, second trimester (principal); Z3A.24 24 weeks gestation of pregnancy; Z11.52 Encounter for screening for COVID-19
CPT/HCPCS: 36415; 87804; 87811; 99284